=== PATIENT | male | born 1950 | race Caucasian/White ===

== ENCOUNTER → 2017-03-12 | Outpatient (CLI) | payer MEDICARE ==
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
== END | disposition home or self-care (01) ==
LOC: SLEEP 14:30
PROVIDERS: ATTEND Internal Medicine Critical Care Medicine
DX: G47.33 Obstructive sleep apnea (adult) (pediatric) (principal); R53.82 Chronic fatigue, unspecified; G47.10 Hypersomnia, unspecified; E66.9 Obesity, unspecified; I10 Essential (primary) hypertension; E78.5 Hyperlipidemia, unspecified; R97.20 Elevated prostate specific antigen [PSA]; Z68.41 Body mass index [BMI] 40.0-44.9, adult; Z79.899 Other long term (current) drug therapy
CPT/HCPCS: 99204; 99211

== ENCOUNTER → 2017-08-13 | Outpatient (CLI) | payer MEDICARE ==
--- NOTE | 2017-08-13 16:54 | PN ---
PROGRESS NOTE This is a 67-year-old male patient coming in for a followup regarding his obstructive sleep apnea. The patient has moderate to severe disease with an AHI of 26, and the patient also demonstrated severe nocturnal oxygen desaturation. The patient was titrated to a CPAP pressure of 13 cm of water. On today's evaluation, the patient feels great; he is much better; his sleep quality has improved and he is waking up much more alert and refreshed during the day. I checked his current CPAP compliance data, and the patient is averaging more than 9 hours of sleep; an average of 9.1 hours per night. CPAP use for more than 4 hours is 100%. CPAP use has brought the patient's AHI down to 8. Leak factor 30 L/minute and the patient was switched to an AirTouch large- sized full-face mask. He has no specific complaints. He is happy with ongoing treatment. REVIEW OF SYSTEMS: Twelve-point review of systems was done. Positive findings were all mentioned above in the history of present illness. PHYSICAL EXAMINATION: BP is 146/86, pulse 68, respirations 16, temperature 99 0. Weight is 339, saturation 96% on room air. GENERAL APPEARANCE: Calm, comfortable. No acute distress. Head is atraumatic, normocephalic. NECK: Supple. There is no JVD. No goiter or neck masses. LUNGS: Clear to auscultation. Heart sounds are regular rate and rhythm. Normal S1, S2. No S3, S4. No murmurs. ABDOMEN: Soft, nontender. No organomegaly. EXTREMITIES: No edema. No cyanosis or clubbing. NEUROLOGIC: The patient is alert and oriented x3. There is no focal neurological deficit. PSYCHIATRIC: Negative for anxiety or depression. IMPRESSION: 1. Moderately severe obstructive sleep apnea with an AHI of 26, currently on CPAP pressure of 13 with excellent clinical response and compliancy. 2. Hypersomnia, improved. Vinton score is down to 4. 3. Obesity with a body mass index of 44. PLAN: 1. Continue CPAP at the same level of pressure, which is 13 cm of water. 2. Provide the patient an AirTouch large full-face mask. 3. Encourage weight loss. 4. Implement good sleep hygiene measures. 5. Will continue to follow. We will see the patient in followup in a year's time, earlier if needed. MMODL / IJN: [id number] /
== END ==
LOC: SLEEP 14:21
PROVIDERS: ATTEND Internal Medicine Critical Care Medicine
DX: G47.33 Obstructive sleep apnea (adult) (pediatric) (principal); E66.9 Obesity, unspecified; Z68.41 Body mass index [BMI] 40.0-44.9, adult; Z99.89 Dependence on other enabling machines and devices

== ENCOUNTER → 2018-08-11 | Outpatient (CLI) | payer MEDICARE, OTHER ==
--- NOTE | 2018-08-11 14:05 | US ---
EXAMINATION TYPE: US kidneys/renal and bladder DATE OF EXAM: 08/11/2018 COMPARISON: NONE CLINICAL HISTORY: N18.9 chronic kidney disease. Hx bladder infection- was on antibiotics, no pain tod ay EXAM MEASUREMENTS: Right Kidney: 11.4 x 5.7 x 4.8 cm Left Kidney: 11.6 x 5.3 x 5.8 cm Right Kidney: No hydronephrosis or masses seen. Appears lobular in appearance. Left Kidney: Upper pole hypoechoic lesion seen = 1.0 x 1.3 x 1.0 cm Bladder: mildly distended Bilateral Jets not seen There is no evidence for hydronephrosis at this point in time. No nephrolithiasis is seen. The urina ry bladder is incompletely distended but anechoic. Bilateral ureteral jets are not seen. IMPRESSION: 1.0 cm left renal lesion is not definitively a cyst and short-term follow-up could be performed in [address] abdomen could be performed for full characterization.
== END | disposition home or self-care (01) ==
LOC: RADUSWWP 13:30
PROVIDERS: ATTEND Internal Medicine Geriatric Medicine
DX: N18.9 Chronic kidney disease, unspecified (principal)
CPT/HCPCS: 76770

== ENCOUNTER → 2018-10-07 | Outpatient (CLI) | payer MEDICARE ==
--- NOTE | 2018-10-07 12:31 | P.PN ---
Subjective Progress Note Date: 10/07/18 Principal diagnosis: FELICIA This is a pleasant 68-year-old male patient with known history of sleep apnea. The patient is coming in for an annual check. His last evaluation my office was in August 2017. The patient was diagnosed having obstructive sleep apnea moderate in severity with an AHI of 26 and the patient also demonstrated severe nocturnal oxygen desaturation. He was secondary to a CPAP pressure of 13 cm of water. On today's evaluation, the patient is on a strict diet. He is following a [employer] application is [employer] phone and he was able to lose approximately 20 pounds. Used to weigh 339 pounds approximately year ago and currently is down to 319. Despite this, history requiring a CPAP pressure of 13 cm of water. He is still very compliant to CPAP therapy. I checked his CPAP unit and the patient is averaging around 9.3 hours of CPAP use per night. His CPAP use for more than 4 hours on the percent. His leak is 24 L per minute and his AHI is down to 8 while on treatment. Despite some residual obstructive respiratory events, the patient treatment is successful. His current upper scores at 1. No headaches. No tiredness or sleepiness during the day. Does not fall asleep while driving his car or while doing any other day-to-day activities. No chest pain. No heartburns. No sleepwalking. No sleep talking. No parasomnias. No unusual or weird behavior at nighttime during sleep. No cardiac palpitations. No CVA. No congestion heart failure at this point in time. Is very much excited about his weight loss. Review of system 14 point review of system was done and the positive signs are all mentioned above. Of significance is significant amount of weight loss the patient has encountered there. No nausea, no vomiting. No chest pain. No falls. No headaches. Altered mentation. Objective - Vital Signs Vital signs: BP is 167/48. Pulse is 66. Respirations 16, BMI is 42.6, temperature 98.3, weight is 319, height is 60, [place] score is down to 1. The patient appeared well nourished and normally developed. Vital signs as documented. Head exam is unremarkable. No scleral icterus or corneal arcus noted. Neck is without jugular venous distension, thyromegaly, or carotid bruits. Patient has a Mallampati class IV. Carotid upstrokes are brisk bilaterally. Lungs are clear to auscultation and percussion. Cardiac exam reveals the PMI to be normally sized and situated. Rhythm is regular. First and second heart sounds normal. No murmurs, rubs or gallops. Abdominal exam reveals normal bowel sounds, no masses, no organomegaly and no aortic enlargement. Ex tremities are nonedematous and both femoral and pedal pulses are normal.Examination of the skin revealed no evidence of significant rashes, suspicious appearing nevi or other concerning lesions. Neurologically awake and alert and there is no focal neurological deficits. Assessment and Plan Assessment: 1. Obstructive sleep apnea moderate in severity with an AHI of 26 and currently is still on a CPAP pressure of 13 cm of water with excellent clinical response and compliancy 2 severe nocturnal oxygen desaturation improved with CPAP therapy 3 obesity with interval 20 pounds weight loss with a BMI of 42.6 4 hypersomnia improve his current epworth score is down to 1 5 chronic fatigue and sleepiness, improved 6. Loud snoring, recovered Plan Encourage further weight loss. Continue using the CPAP and same level of pressure which is 13 cm of water. I able to cut down the pressure as the patient's AHI while on treatment is at borderline, just above 5. Would like to keep and maintain the same CPAP pressure and lose weight and overall things we'll look improved and the patient will seem to be much more refreshed the next few months. Otherwise history successful for now. Continue using the airfit F20 fullface mask and all of his supplies will be renewed. We'll see back in a year's time in follow-up, earlier if needed.
== END ==
LOC: SLEEP 10:47
PROVIDERS: ATTEND Internal Medicine Critical Care Medicine
DX: G47.33 Obstructive sleep apnea (adult) (pediatric) (principal); E66.9 Obesity, unspecified; R53.82 Chronic fatigue, unspecified; Z99.89 Dependence on other enabling machines and devices; Z68.41 Body mass index [BMI] 40.0-44.9, adult

== ENCOUNTER 2019-03-02 09:23 | Inpatient (IN) | payer OTHER, MEDICARE ==
[2019-03-02] MEDS ORDERED: SODIUM CHLORIDE 0.9% 500 ML 500 ML IV STA (09:31)
[2019-03-02 10:05] LABS: Basophils % (A) 0 %; Eosinophils # (A) 0.2 k/uL (0-0.7); Eosinophils % (A) 4 %; HCT 43.4 % (39.0-53.0); HGB 14.3 gm/dL (13.0-17.5); Lymphocytes # (A) 1.2 k/uL (1.0-4.8); Lymphocytes % (A) 21 %; MCH 27.8 pg (25.0-35.0); MCV 84.1 fL (80.0-100.0); Monocytes # (A) 0.4 k/uL (0-1.0); Monocytes % (A) 6 %; Neutrophils % (A) 67 %; Platelet Count 265 k/uL (150-450); RBC 5.16 m/uL (4.30-5.90); RDW 13.9 % (11.5-15.5); WBC 5.9 k/uL (3.8-10.6)
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
[2019-03-02 10:13] LABS: INR 0.9 (<1.2)
[2019-03-02 10:14] LABS: Partial Thromboplastin Time 23.1 sec (22.0-30.0); Prothrombin Time 9.4 sec (9.0-12.0)
[2019-03-02 10:15] LABS: ALT 20 U/L (4-49); AST 27 U/L (17-59); African American GFR (CKD) 83 (>60 ml/min/1.73 sqM); Albumin 4.4 g/dL (3.5-5.0); Alcohol <10 mg/dL; Alkaline Phosphatase 109 U/L (38-126); Anion Gap 12 mmol/L; Blood Urea Nitrogen 31 mg/dL (9-20); Calcium 10.1 mg/dL (8.4-10.2); Carbon Dioxide 22 mmol/L (22-30); Chloride 105 mmol/L (98-107); Glucose 138 mg/dL (74-99); Non-African American GFR(CKD) 72 (>60 ml/min/1.73 sqM); Potassium 3.7 mmol/L (3.5-5.1); Sodium 139 mmol/L (137-145); Total Bilirubin 0.6 mg/dL (0.2-1.3); Total Protein 7.7 g/dL (6.3-8.2)
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
--- NOTE | 2019-03-02 11:06 | XR ---
EXAMINATION TYPE: XR chest 2V DATE OF EXAM: 03/02/2019 COMPARISON: NONE HISTORY: Shortness of breath TECHNIQUE: Frontal and lateral views of the chest are obtained. FINDINGS: Scattered senescent parenchymal changes noted. Hyperinflation compatible with COPD. No evidence for infiltrate. No evidence for atelectasis. Heart size is stable. Mediastinal structures are stable and grossly unremarkable. No evidence for hilar prominence. Degenerative changes dorsal spine. IMPRESSION: 1. No evidence for acute pulmonary disease.
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
[2019-03-02] MEDS ORDERED: SODIUM CHLORIDE 0.9% 1,000 ML IV ONE (12:16)
[2019-03-02] MEDS ORDERED: INFLUENZA VACCINE (6 MOS+) 60 MCG/0.5 ML SYRINGE IM ONE (13:51)
[2019-03-02] MEDS ORDERED: PNEUMOCOCCAL VACC-PNEUMOVAX 23 25 MCG/0.5 ML VIAL IM ONE (13:51)
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
[2019-03-02] MEDS ORDERED: NAPROXEN 250 MG TAB PO PRN (17:52)
[2019-03-02] MEDS ORDERED: ACETAMINOPHEN TAB 325 MG TAB PO PRN (17:53)
[2019-03-02] MEDS ORDERED: ONDANSETRON 4 MG/2 ML VIAL IVP PRN (17:53)
[2019-03-02 20:52] VITALS: RESP 18
[2019-03-02] MEDS ORDERED: NON FORMULARY DRUG (Zinc [Zinc] 50 MG) PO SCH (21:00)
[2019-03-02] MEDS ORDERED: PANTOPRAZOLE 40 MG TABLET PO SCH (21:00)
[2019-03-02] MEDS ORDERED: MULTIVITAMINS, THERA 1 EACH TAB PO SCH (21:00)
[2019-03-02] MEDS ORDERED: FERROUS SULFATE 325 MG TAB PO SCH (21:00)
[2019-03-02] MEDS ORDERED: LISINOPRIL 20 MG TAB PO SCH (21:00)
[2019-03-02] MEDS ORDERED: CITALOPRAM HYDROBROMIDE 20 MG TAB PO SCH (21:00)
[2019-03-02] MEDS ORDERED: ATENOLOL 25 MG TAB PO SCH (21:00)
[2019-03-02] MEDS ORDERED: TRIAMTERENE-HCTZ 37.5-25MG 1 EACH CAP PO SCH (21:00)
[2019-03-02] MEDS ORDERED: TAMSULOSIN 0.4 MG CAP.ER.24H PO SCH (21:00)
[2019-03-02] MEDS ORDERED: ATORVASTATIN 20 MG TAB PO SCH (21:00)
[2019-03-03 05:13] VITALS: BP 126/91; PULSE 78; TEMP 98.1
[2019-03-03 09:40] LABS: HCT 39.1 % (39.0-53.0); HGB 13.1 gm/dL (13.0-17.5); MCH 28.5 pg (25.0-35.0); MCHC 33.6 g/dL (31.0-37.0); MCV 84.7 fL (80.0-100.0); Platelet Count 245 k/uL (150-450); RBC 4.62 m/uL (4.30-5.90); RDW 13.8 % (11.5-15.5); WBC 5.4 k/uL (3.8-10.6)
[2019-03-03 10:00] LABS: Calcium 9.6 mg/dL (8.4-10.2); Potassium 3.8 mmol/L (3.5-5.1)
[2019-03-03] MEDS ORDERED: KETOROLAC 30 MG/ML 1 ML VIAL IVP SCH (12:00)
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
== END 2019-03-03 15:20 | disposition home or self-care (01) | DRG 313 ==
LOC: EC 09:23 → 5NMEDONC 12:16 → OBSVTOIN 03-03 11:15
PROVIDERS: ADMIT Surgery; ATTEND Surgery
PROC: 3E0234Z Introduction of Serum, Toxoid and Vaccine into Muscle, Percutaneous Approach (ICD-10-PCS; principal; 2019-03-02)
DX: R07.89 Other chest pain (principal); G89.11 Acute pain due to trauma; R10.9 Unspecified abdominal pain; E78.5 Hyperlipidemia, unspecified; F32.9 Major depressive disorder, single episode, unspecified; K21.9 Gastro-esophageal reflux disease without esophagitis; I10 Essential (primary) hypertension; Z23 Encounter for immunization; D64.9 Anemia, unspecified; K42.9 Umbilical hernia without obstruction or gangrene; K40.90 Unilateral inguinal hernia, without obstruction or gangrene, not specified as recurrent; M15.9 Polyosteoarthritis, unspecified; G47.33 Obstructive sleep apnea (adult) (pediatric); R73.03 Prediabetes; N40.0 Benign prostatic hyperplasia without lower urinary tract symptoms; Z79.899 Other long term (current) drug therapy; Z99.89 Dependence on other enabling machines and devices; Z98.890 Other specified postprocedural states; Z87.891 Personal history of nicotine dependence; Z82.49 Family history of ischemic heart disease and other diseases of the circulatory system; V49.49XA Driver injured in collision with other motor vehicles in traffic accident, initial encounter; Y92.410 Unspecified street and highway as the place of occurrence of the external cause
CPT/HCPCS: 36415; 70450; 71046; 71120; 72125; 72170; 74177; 80048; 80053; 80320; 84484; 85025; 85027; 85610; 85730; 90686; 90732; 93005; 96360; 99285

== ENCOUNTER → 2019-11-10 | Outpatient (CLI) | payer MEDICARE ==
--- NOTE | 2019-11-10 16:38 | PN ---
PROGRESS NOTE Progress note for sleep apnea. A 69-year-old male patient being seen in followup in the [facility] regarding his obstructive sleep apnea. The patient has a moderate to severe disease with an AHI of 26. He continues to lose weight. After losing 20 pounds, he lost an additional 70 pounds and currently is down to 246. He remains on a CPAP pressure of 13 cm of water. I noted some increased leak. It has been going on over the past one year and has been gradually getting worse as the patient's leak is currently up to 70 L/minute and the patient is using an AirTouch fullface mask. Based on the compliance data, the patient is still benefitting from the treatment and continues using the CPAP treatment on a regular basis. His CPAP use for more than 4 hours at 100% and the patient is averaging around 11 hours and 6 minutes of CPAP use per night. His AHI is down to 4. No other new complaints. He has BPH and he is on tamsulosin. He is on 5 different antihypertensive medications, blood pressure on tighter control. He has chronic anxiety/depression. No major hypersomnia or sleepiness during the day. His Derwent score is down to 4. REVIEW OF SYSTEMS: A 14-point review of system was done, positive findings are mentioned in history of present illness. BP is 108/54, pulse 70, respiratory rate 16, temperature 98.2, saturation 97% on room air. Derwent score is at 4. BMI is 37.2. Weight is 246, height is 6, 1 and general appearance calm, comfortable, no acute distress. HEAD: Atraumatic, normocephalic. NECK: Supple. No JVD. No goiter or neck masses. LUNGS: Clear to auscultation. HEART: Heart sounds are regular rate and rhythm. Normal S1, S2, no murmurs. ABDOMEN: Soft, nontender, no organomegaly. EXTREMITIES: No edema, cyanosis or clubbing. IMPRESSION: 1. Moderately severe FELICIA, AHI of 26. The patient has lost considerable amount of weight. His current BMI is down to 37.2 and weight is down to 246. 2. Increased leaks around the fullface mask, probably related to ongoing weight loss. 3. Hypertension, well controlled. 4. BPH. 5. Chronic anxiety. PLAN: 1. Switch the patient to an APAP mode. I think APAP will be useful to regulate the patient's pressure as the patient continues to lose considerable amount of weight. Currently he is on CPAP pressure of 3. I will switch him to an APAP mode, minimum pressure of 6, maximum pressure of 13, keeping the AirTouch fullface mask, large size. 2. Encourage further weight loss. 3. Follow up with the blood pressure regarding blood pressure medication adjustments. As the patient has lost weight, his blood pressure is under tighter control and his blood pressure medication can be simplified. 4. See me back in a year's time in followup. MMODL / IJN: [id number] /
== END | disposition home or self-care (01) ==
LOC: SLEEP 14:37
PROVIDERS: ATTEND Internal Medicine Critical Care Medicine
DX: G47.33 Obstructive sleep apnea (adult) (pediatric) (principal); I10 Essential (primary) hypertension; N40.0 Benign prostatic hyperplasia without lower urinary tract symptoms; F41.9 Anxiety disorder, unspecified; Z99.89 Dependence on other enabling machines and devices

== ENCOUNTER → 2020-07-04 | Outpatient (CLI) | payer MEDICARE ==
--- NOTE | 2020-07-05 04:25 | MR ---
EXAMINATION TYPE: MR lumbar spine wo/w con DATE OF EXAM: 07/04/2020 COMPARISON: None HISTORY: LBP, LLE radiculopathy x 6 weeks. CONTRAST: Standard multiplanar, multisequence MRI departmental protocol utilizing 12 mL intravenous Gadavist ga dolinium contrast. The lumbar vertebra have normal alignment. There is degenerative disc space narrowing throughout the lumbar spine. There is moderate posterior disc herniation at L2-3 with encroachment on the spinal can al. There is some enhancement of the lumbar nerve roots at L2-3. There is moderate spinal stenosis. D isc herniation is seen bilaterally at L2-3. There is no lumbar paraspinal mass. There is no compression fracture. There is small posterior disc b ulging at L3-4 and L4-5 and L5-S1 without significant spinal stenosis. There is lateral recess stenos is due to facet arthropathy at L4-5. There is some epidural enhancement along the posterior aspect of the L3 vertebral body consistent with sequestered disc fragment this is seen on the left side of L3 vertebral body. Abnormality measures 15 x 10 mm. IMPRESSION: Large posterior disc herniation with sequestered fragment at L2-3 which is elevating the posterior lo ngitudinal ligament. This is seen on the left side. Disc herniation also on the right side at L2-3. M oderate spinal stenosis at L2-3. Nerve root enhancement consistent with neuritis. Moderate L2-3 neura l foraminal stenosis due to the disc herniation. Small posterior disc herniations in the lower lumbar spine without significant stenosis. There is mil d multilevel lateral recess stenosis.
== END | disposition home or self-care (01) ==
LOC: RADMRIMAIN 16:39
PROVIDERS: ATTEND Internal Medicine Geriatric Medicine
DX: M48.061 Spinal stenosis, lumbar region without neurogenic claudication (principal); M51.16 Intervertebral disc disorders with radiculopathy, lumbar region; M99.73 Connective tissue and disc stenosis of intervertebral foramina of lumbar region
CPT/HCPCS: 72158; A9585

== ENCOUNTER → 2020-07-26 | Outpatient (CLI) | payer MEDICARE ==
[2020-07-26 12:35] LABS: Basophils % (A) 0 %; Eosinophils # (A) 0.1 k/uL (0-0.7); Eosinophils % (A) 1 %; HCT 40.6 % (39.0-53.0); HGB 13.5 gm/dL (13.0-17.5); Lymphocytes # (A) 0.9 k/uL (1.0-4.8); Lymphocytes % (A) 14 %; MCH 29.2 pg (25.0-35.0); MCHC 33.4 g/dL (31.0-37.0); MCV 87.4 fL (80.0-100.0); Mean Platelet Volume 7.2; Monocytes # (A) 0.3 k/uL (0-1.0); Monocytes % (A) 5 %; Neutrophils # (A) 5.2 k/uL (1.3-7.7); Neutrophils % (A) 79 %; Platelet Count 177 k/uL (150-450); RBC 4.64 m/uL (4.30-5.90); RDW 14.3 % (11.5-15.5); WBC 6.5 k/uL (3.8-10.6)
[2020-07-26 12:43] LABS: African American GFR (CKD) >90 (>60 ml/min/1.73 sqM); Anion Gap 5 mmol/L; Blood Urea Nitrogen 31 mg/dL (9-20); Calcium 9.5 mg/dL (8.4-10.2); Carbon Dioxide 29 mmol/L (22-30); Chloride 102 mmol/L (98-107); Glucose 88 mg/dL (74-99); Non-African American GFR(CKD) >90 (>60 ml/min/1.73 sqM); Potassium 3.8 mmol/L (3.5-5.1); Sodium 136 mmol/L (137-145)
--- NOTE | 2020-07-26 12:47 | XR ---
EXAMINATION TYPE: XR chest 2V DATE OF EXAM: 07/26/2020 COMPARISON: 03/02/2019 HISTORY: chest pain TECHNIQUE: Frontal and lateral views of the chest are obtained. FINDINGS: There is no focal air space opacity, pleural effusion, or pneumothorax seen. The cardiac silhouette size is within normal limits. The osseous structures are intact. IMPRESSION: No acute cardiopulmonary process.
[2020-07-26 13:10] LABS: INR 0.9 (<1.2); Partial Thromboplastin Time 22.2 sec (22.0-30.0); Prothrombin Time 9.8 sec (9.0-12.0)
[2020-07-26 14:58] LABS: Appearance,Urine Clear (Clear); Bilirubin,Urine Negative (Negative); Blood,Urine Negative (Negative); Color,Urine Yellow; Glucose,Urine (UA) Negative (Negative); Ketones,Urine Negative (Negative); Leukocyte Esterase,Urine Negative (Negative); Mucus,Urine Rare /hpf; Nitrite,Urine Negative (Negative); PH, Urine 7.5 (5.0-8.0); Protein,Urine 1+ (Negative); RBC,Urine <1 /hpf (0-5); Specific Gravity,Urine 1.023 (1.001-1.035); Squamous Epithelial Cell,Urine 1 /hpf (0-4); Urobilinogen,Urine <2.0 mg/dL (<2.0); WBC,Urine <1 /hpf (0-5)
== END | disposition home or self-care (01) ==
LOC: LABPAT 11:49
PROVIDERS: ATTEND Orthopaedic Surgery Orthopaedic Surgery of the Spine
DX: Z01.818 Encounter for other preprocedural examination (principal); R07.9 Chest pain, unspecified
CPT/HCPCS: 36415; 71046; 80048; 81001; 85025; 85610; 85730; 87070

== ENCOUNTER 2020-08-03 06:14 | Day surgery (SDC) | payer MEDICARE ==
[2020-07-28 11:26] VITALS: BMI 34.7
[~2020-08-03 06:14] MED LIST: LACTATED RINGERS 1,000 ML IV SCH; LIDOCAINE 1% (10MG/ML) FOR IV START INTRADERMA PRN; ONDANSETRON 4 MG/2 ML VIAL IVP ONE
[2020-08-03] MEDS ORDERED: HYDROmorphone 0.5 MG/0.5 ML SYRINGE IVP PRN ×2 (07:00→09:23)
[2020-08-03] MEDS ORDERED: SUCCINYLCHOLINE CHLORIDE VIAL 200 MG/10 ML VIAL IV ONE (07:24)
[2020-08-03] MEDS ORDERED: ePHEDrine SULFATE/0.9% NACL/PF 50 MG/5 ML SYRINGE IV ONE (07:24)
[2020-08-03] MEDS ORDERED: PROPOFOL 10 MG/ML 20 ML VIAL IV ONE (07:24)
[2020-08-03] MEDS ORDERED: PHENYLEPHRINE-0.9% NACL SYG 1,000 MCG/10 ML SYRINGE ONE (07:24)
[2020-08-03] MEDS ORDERED: LIDOCAINE 1% INJ 10MG/ML (20 ML MDV) ONE (07:24)
[2020-08-03] MEDS ORDERED: MIDAZOLAM 2 MG/2 ML VIAL ONE (07:24)
[2020-08-03] MEDS ORDERED: fentaNYL (PF) 50 MCG/ML 2 ML AMP ONE (07:24)
[2020-08-03] MEDS ORDERED: ROCURONIUM 10 MG/ML (5 ML VIAL) IV ONE (07:24)
[2020-08-03] MEDS ORDERED: NEOSTIGMINE 1 MG/ML 10 ML VIAL ONE (07:24)
[2020-08-03] MEDS ORDERED: GLYCOPYRROLATE 0.2 MG/ML 2 ML VIAL ONE (07:24)
[2020-08-03] MEDS ORDERED: HYDROmorphone (PF) 1 MG/ML ONE (07:24)
[2020-08-03] MEDS: ceFAZolin 1,000 MG in SODIUM CHLORIDE 0.9% IRRIGATIO 1,000 ML IRRIGATION PRN ×2 (07:30→07:35)
[2020-08-03] MEDS ORDERED: GELATIN SPONGE,ABSORB (LARGE) 1 EACH SPONGE TOPICAL ONE (08:24)
[2020-08-03] MEDS ORDERED: LIDOCAINE 0.5%-EPI 1:200,000 50 ML VIAL SQ ONE (08:25)
[2020-08-03] MEDS ORDERED: methylPREDNISolone ACETATE 80 MG/ML 1 ML VIAL MISCELLANE ONE (08:25)
[2020-08-03] MEDS ORDERED: THROMBIN (BOVINE) 5,000 UNIT VIAL TOPICAL ONE (08:26)
[2020-08-03] MEDS ORDERED: LACTATED RINGERS 1,000 ML IV ONE (09:15)
[2020-08-03] MEDS ORDERED: MAGNESIUM HYDROXIDE 2,400 MG/10 ML CUP PO PRN (09:23)
[2020-08-03] MEDS ORDERED: traMADol 50 MG TAB PO PRN (09:23)
[2020-08-03] MEDS ORDERED: HYDROcodone/APAP 5-325MG 1 EACH TAB PO PRN (09:23)
[2020-08-03] MEDS ORDERED: KETOROLAC 15 MG/ML 1 ML VIAL IVP PRN (09:23)
[2020-08-03] MEDS ORDERED: HYDROmorphone 1 MG/ML 1 ML SYRINGE IVP PRN (09:23)
[2020-08-03] MEDS ORDERED: BENZOCAINE/MENTHOL LOZENG 1 EACH LOZENGE MUCOUS MEM PRN (09:23)
[2020-08-03] MEDS ORDERED: CYCLOBENZAPRINE 10 MG TAB PO PRN (09:23)
[2020-08-03] MEDS ORDERED: ONDANSETRON 4 MG/2 ML VIAL IVP PRN (09:23)
[2020-08-03] MEDS ORDERED: IBUPROFEN 600 MG TAB PO PRN (09:23)
[2020-08-03] MEDS ORDERED: NAPROXEN 250 MG TAB PO PRN (09:26)
[2020-08-03] MEDS ORDERED: HYDROcodone/APAP 7.5-325MG 1 EACH TAB PO PRN ×2 (09:26→09:27)
--- NOTE | 2020-08-03 09:32 | P.OP ---
Date of Procedure: 08/03/20 Preoperative Diagnosis: Herniated nucleus pulposis L2-3, lower extremity radiculopathy, lower extremity weakness, intractable lower extremity pain and degenerative disc disease, Postoperative Diagnosis: Same Anesthesia: GETA Pathology: none sent Condition: stable Disposition: PACU Description of Procedure: BRIEF OPERATIVE NOTE Preoperative Diagnosis:Herniated nucleus pulposis L2-3, lower extremity radiculopathy, lower extremity weakness, intractable lower extremity pain and degenerative disc disease, Postoperative Diagnosis:Herniated nucleus pulposis L2-3, lower extremity radiculopathy, lower extremity weakness, intractable lower extremity pain and degenerative disc disease, Procedure: Laminectomy and decompression L2-3 Discectomy for decompression L2-3 Use of fluoroscopic guidance Surgeon: Dr. Blancas Seat Scooper Machine: Tamie CUELLAR who is present throughout the entire the case persistence during positioning, dissection, exposure, visualization, and all crucial elements of the case as well as closure. Anesthesia: General anesthesia per Dr. Dr. Keith Estimated blood loss: Approximately 100 mL Complications: None apparent Components implanted: None Disposition: To recovery room in good stable condition. OPERATIVE INDICATIONS The patient has been having issues in their lower back and lower extremities. His been having severe pain and difficulty with any activities and even with difficulty with trying to lay down. His been having severe pain in his back and primarily at his lower extremities on the left. He was found have a large disc herniation with extruded fragment at L2-3 which correlated well with his lower extremity symptoms. He had a number of degenerative changes throughout his lumbar spine but this seems to be a new issue with a disc extrusion and herniation at L2-3 which correlated well with his lower extremity symptoms. The patient has been through conservative treatment. We discussed various treatment options including surgery, and the patient wishes to proceed with surgery We discussed the risk, patient's alternatives and benefits of surgery including but not limited to, risk of bleeding risk of infection, risk of need for further surgery, risk of decreased, loss of motion, loss of function, nerve damage, paralysis, heart attack, blindness and . OPERATIVE SUMMARY After discussing all the risks, patient alternatives and benefits at length, the patient elected to proceed with surgical intervention, signed informed consent, and presented for their procedure. The patient was seen and examined in the preoperative holding area and the surgical site was marked. The patient was given antibiotics and brought to the operating room. The patient was sedated and intubated by anesthesia in standard fashion. The patient was positioned on to the operating room table in a prone position on the appropriate frame which was well-padded and well molded. We were careful to pad any bony prominences and pressure points. We were careful to maintain the patient's cervical spine and good neutral alignment and position throughout. The patient was prepped and draped in a normal standard fashion. An appropriate timeout and keystone protocol performed. We were able to proceed with the surgery. Fluoroscopy was utilized to establish the appropriate level. The local wound area was infiltrated with local anesthetic. An incision was made at the midline longitudinally over the appropriate levels at L2-3. Dissection was taken down subcutaneously to the level of the fascia which was split midline. Dissection was taken over the lamina. Intraoperative fluoroscopy was taken which showed a marker at the appropriate level of L2-3. With the appropriate level positively confirmed, we were able to proceed with laminectomy. The wound was copiously irrigated and suctioned dry as had been done periodically throughout the case. I performed a laminectomy with a combi nation of curettes and a high-speed bur and Kerrison rongeurs. A small medial facetectomy was performed again further access. A partial foraminotomy was also performed. Portions of the ligamentum flavum were taken down to expose the dura and traversing nerve root. The area was significantly tight and I had to expose the medial facet and do partial medial facetectomy on to gain good access to the space. I was able to mobilize the traversing nerve root and gain access to the disc space. Note was made of obvious compression from the disc. There is significant tension on the traversing nerve roots. Protecting the soft tissue structures, a small annulotomy was established. I was able to perform discectomy and remove any extruded disc fragments and any loose fragments from within the disc itself. There is some severe disc desiccation noted. I tried to preserve the disc annulus that appeared stable. Throughout number of extruded fragments that had to be removed and this gave further decompression at the area. There were no further extruded fragments noted. There is no evidence of dural tear or leak. Good hemostasis maintained. The wound was copiously irrigated and suctioned dry. Good decompression and discectomy was noted. We were able to proceed with closure. The fascia was closed for a watertight closure. The subcuticular tissue was closed with absorbable suture. The wound was cleaned and dried and dressed with the appropriate dressing. The drapes were broken down. The patient was gently rolled back onto their hospital bed being careful to maintain their cervical spine and good neutral alignment and position. They were woken up by anesthesia, extubated, and brought to the recovery room in good stable condition. The patient will be admitted to the hospital for observation and for appropriate postoperative care, medical management and monitoring. We will continue to follow them closely about the postoperative course.
--- NOTE | 2020-08-03 09:33 | FL ---
Fluoroscopy INDICATION: Pain FINDINGS: Fluoroscopy time: 8 seconds. Images obtained: 0. IMPRESSIONS: 1. Documentation of fluoroscopy.
[2020-08-03 09:41] VITALS: TEMP 96.8
--- NOTE | 2020-08-03 10:07 | XR ---
Limited lumbar spine HISTORY: Lumbar laminectomy Single intraoperative C-arm image documents the procedure
[2020-08-03 11:27] VITALS: RESP 17
[2020-08-03 12:18] VITALS: BP 131/78; PULSE 60
[2020-08-03] MEDS ORDERED: NON FORMULARY DRUG (Omeprazole Magnesium [Prilosec Otc] 20 MG Tablet.Dr) PO SCH (21:00)
[2020-08-03] MEDS ORDERED: BACLOFEN 10 MG TAB PO SCH (21:00)
[2020-08-03] MEDS ORDERED: NON FORMULARY DRUG (Citalopram Hydrobromide [Celexa] 40 MG Tablet) PO SCH (21:00)
[2020-08-03] MEDS ORDERED: NON FORMULARY DRUG (Enalapril 20 MG Tab) PO SCH (21:00)
[2020-08-03] MEDS ORDERED: atenoloL 25 MG TAB PO SCH (21:00)
[2020-08-03] MEDS ORDERED: TRIAMTERENE-HCTZ 37.5-25MG 1 EACH CAP PO SCH (21:00)
[2020-08-03] MEDS ORDERED: NON FORMULARY DRUG (Simvastatin [Simvastatin] 40 MG Tablet) PO SCH (21:00)
[2020-08-03] MEDS ORDERED: MULTIVITAMINS, THERA 1 EACH TAB PO SCH (21:00)
[2020-08-03] MEDS ORDERED: NON FORMULARY DRUG (Zinc [Zinc] 50 MG Tablet) PO SCH (21:00)
[2020-08-03] MEDS ORDERED: NON FORMULARY DRUG (Aspirin [Adult Low Dose Aspirin Ec] 81 MG Tablet.Dr) PO SCH (21:00)
[2020-08-03] MEDS ORDERED: TAMSULOSIN 0.4 MG CAP.ER.24H PO SCH (21:00)
== END 2020-08-03 12:40 | disposition home or self-care (01) ==
LOC: OR 06:14
PROVIDERS: ATTEND Orthopaedic Surgery Orthopaedic Surgery of the Spine
DX: M51.16 Intervertebral disc disorders with radiculopathy, lumbar region (principal); M51.36 Other intervertebral disc degeneration, lumbar region; M48.062 Spinal stenosis, lumbar region with neurogenic claudication; M47.26 Other spondylosis with radiculopathy, lumbar region; I12.9 Hypertensive chronic kidney disease with stage 1 through stage 4 chronic kidney disease, or unspecified chronic kidney disease; N18.9 Chronic kidney disease, unspecified; E78.5 Hyperlipidemia, unspecified; K21.9 Gastro-esophageal reflux disease without esophagitis; N40.0 Benign prostatic hyperplasia without lower urinary tract symptoms; F41.9 Anxiety disorder, unspecified; R73.9 Hyperglycemia, unspecified; R26.81 Unsteadiness on feet; I73.00 Raynaud's syndrome without gangrene; Z97.3 Presence of spectacles and contact lenses; Z82.49 Family history of ischemic heart disease and other diseases of the circulatory system; Z87.891 Personal history of nicotine dependence; E66.9 Obesity, unspecified; Z68.34 Body mass index [BMI] 34.0-34.9, adult; F32.9 Major depressive disorder, single episode, unspecified; G47.30 Sleep apnea, unspecified; Z98.890 Other specified postprocedural states; Z79.891 Long term (current) use of opiate analgesic; Z79.899 Other long term (current) drug therapy
CPT/HCPCS: 72100; 63047; 63048; J2250; J0330; J1040; J2710; J0690 ×2; J2405; J2001; J3010; J1170; J2370; J2704; 86850; 86900; 86901

== ENCOUNTER → 2022-03-13 | Outpatient (CLI) | payer MEDICARE, OTHER ==
--- NOTE | 2022-03-13 16:12 | P.PCN ---
Date of Procedure: 03/13/22 Operative Findings: This is a 71-year-old male patient was seen in follow-up regarding his obstructive sleep apnea. His last evaluation with me was on 11/10/2019. He is a morbidly obese male patient continues to have fluctuations body weight. He has obstructive sleep apnea and his diagnosis established few years back and the patient had a baseline AHI of 26. The patient accordingly was treated with an APAP machine pressures of 5/13 cm of water and is using the air touch full facemask. His treatment has been extremely successful. Since his last evaluation, he has gained weight and currently he is up by around 50 pounds and his weight is back to 300. He is doing well however. His blood pressure seems to be under better control according to him. However, on today's evaluation, his BP was noted to be elevated. I checked his machine and a bili compliancy over the past 30 days. Based on the compliance data, the patient utilizes machine overnight without any interruption in the patient's usage of the machine for more than 4 hours is 100%. His overall compliancy is at 100%. His been ave raging around 10.6 hours of CPAP use per night at a pressure of 12 cm of water on average and his AHI is down to 3.7 while on treatment. His leak is in order of 30 L/m. He wakes up probably twice in the middle of the night to urinate. His taken tamsulosin. No angina. No palpitations. No heartburn. No snoring while on CPAP. No other major medical issue is since his last evaluation. Of significance is a back surgery that he underwent as the patient developed sudden weakness in lower extremities and the patient underwent a spine surgery with subsequent improvement in functionality in his lower extremities. He is currently ambulatory. BP is 177/86 with a pulse of 56 and the respiration of 16 and a weight of 300. Grundy score is 0. Temperature is 97.9 and saturation is 96% on room air oxygen. The patient appeared well nourished and normally developed. Vital signs as documented. Head exam is unremarkable. No scleral icterus or corneal arcus noted. Neck is without jugular venous distension, thyromegaly, or carotid bruits. Carotid upstrokes are brisk bilaterally. The patient has significant crowding of posterior pharynx with a Mallampati class IV. Lungs are clear to auscultation and percussion. Cardiac exam reveals the PMI to be normally sized and situated. Rhythm is regular. First and second heart sounds normal. No murmurs, rubs or gallops. Abdominal exam reveals normal bowel sounds, no masses, no organomegaly and no aortic enlargement. Extremities are nonedematous and both femoral and pedal pulses are normal.Examination of the skin revealed no evidence of significant rashes, suspicious appearing nevi or other concerning lesions.Neurologically, the patient is awake and alert and the patient does not have any focal neurological deficit. Cranial nerves are essentially intact. Assessment FELICIA with a moderate severity with an AHI of 26 currently on CPAP. The patient is utilizing an APAP mode pressures of 5/13 cm of water and he has a full facemask, air touch. Chronic hypersomnia improved with CPAP therapy, current Grundy score is at 0 Hypertension Obesity with a weight of 200 pounds Hypertension Hyperlipidemia Lumbar spine/disc disease Plan Encourage weight loss Continue CPAP therapy the same level of pressures, no adjustments needed Refill supplies including the air touch full facemask, tubes and filters Follow-up with a primary care physician regarding blood pressure control No other active issues for now. Medications reviewed. CPAP machine is functional We'll follow with him back in 1-2 years time.
== END ==
LOC: SLEEP 15:36
PROVIDERS: ATTEND Internal Medicine Critical Care Medicine
DX: G47.33 Obstructive sleep apnea (adult) (pediatric) (principal); E66.9 Obesity, unspecified; Z91.040 Latex allergy status; Z87.891 Personal history of nicotine dependence; Z99.89 Dependence on other enabling machines and devices; I10 Essential (primary) hypertension; E78.5 Hyperlipidemia, unspecified; M51.36 Other intervertebral disc degeneration, lumbar region
CPT/HCPCS: 99212

== ENCOUNTER 2022-11-19 18:58 | Inpatient (IN) | payer MEDICARE, OTHER ==
[2022-11-19 19:02] LABS: Glucose,Whole Blood 175 mg/dL (70-110)
[2022-11-19] MEDS ORDERED: SODIUM CHLORIDE 0.9% 1,000 ML IV STA (19:02)
[2022-11-19 19:10] LABS: Glucose,Whole Blood 195 mg/dL (70-110)
[2022-11-19] MEDS ORDERED: levETIRAcetam IV 2,000 MG in SODIUM CHLORIDE 0.9% 250 ML IVPB ONE (19:15)
[2022-11-19 19:25] LABS: Basophils % (A) 0 %; Eosinophils # (A) 0.4 k/uL (0-0.7); Eosinophils % (A) 5 %; HCT 47.1 % (39.0-53.0); HGB 15.3 gm/dL (13.0-17.5); Lymphocytes # (A) 2.2 k/uL (1.0-4.8); Lymphocytes % (A) 26 %; MCH 29.1 pg (25.0-35.0); MCHC 32.5 g/dL (31.0-37.0); MCV 89.3 fL (80.0-100.0); Monocytes # (A) 0.5 k/uL (0-1.0); Monocytes % (A) 6 %; Neutrophils # (A) 5.1 k/uL (1.3-7.7); Neutrophils % (A) 61 %; Platelet Count 189 k/uL (150-450); RBC 5.28 m/uL (4.30-5.90); WBC 8.5 k/uL (3.8-10.6)
[2022-11-19] MEDS ORDERED: SUCCINYLCHOLINE CHLORIDE 200 MG/10 ML VIAL IV STA (19:28)
[2022-11-19] MEDS ORDERED: ETOMIDATE 2 MG/ML 10 ML VIAL IVP STA (19:29)
[2022-11-19] MEDS ORDERED: LORazepam 2 MG/ML INJ IV STA (19:35)
[2022-11-19] MEDS ORDERED: ALTEPLASE BOLUS FOR STROKE 9 MG in EMPTY SYRINGE 1 SYR IV STA (19:37)
[2022-11-19] MEDS ORDERED: Alteplase PER PHARMACY Stroke 1 EACH MISC MISCELLANE PRN (19:37)
[2022-11-19] MEDS ORDERED: ALTEPLASE 81 MG in EMPTY BAG 1 BAG IV STA (19:37)
--- NOTE | 2022-11-19 19:37 | CT ---
EXAMINATION TYPE: CT brain wo con for TPA CT DLP: 1370 mGycm, Automated exposure control for dose reduction was used. DATE OF EXAM: 11/19/2022 7:19 PM COMPARISON: None. CLINICAL INDICATION:Male, 72 years old with history of Neuro deficit, acute, stroke suspected, TECHNIQUE: Brain: Axial CT images of the brain were obtained with coronal and sagittal reformats created and rev iewed. Contrast used: None. Oral contrast used: None. FINDINGS: Brain: Extra-axial spaces: No abnormal extra-axial fluid collections. Ventricular system: Dilatation in proportion to cerebral atrophy. Cerebral parenchyma: Cerebral atrophy. No acute intraparenchymal hemorrhage or mass effect. The barrera -white junction is well differentiated. Scattered hypoattenuating areas are seen within the white mat ter. Cerebellum: Unremarkable. Mass effect: No evidence of midline shift. Intracranial vasculature: unremarkable Soft tissues: Normal. Calvarium/osseous structures: No depressed skull fracture. Paranasal sinuses and mastoid air cells: Mild scattered paranasal sinus disease. Visualized orbits: Orbital contents are intact. IMPRESSION: 1. No acute intracranial process. 2. Nonspecific white matter changes, likely secondary to chronic small vessel ischemic disease.
[2022-11-19 19:38] LABS: ALT 34 U/L (4-49); AST 36 U/L (17-59); African American GFR (CKD) 69 (>60 ml/min/1.73 sqM); Albumin 4.3 g/dL (3.5-5.0); Alkaline Phosphatase 84 U/L (38-126); Anion Gap 12 mmol/L; Blood Urea Nitrogen 41 mg/dL (9-20); Calcium 9.6 mg/dL (8.4-10.2); Carbon Dioxide 23 mmol/L (22-30); Chloride 105 mmol/L (98-107); Creatine Kinase 45 U/L (55-170); Glucose 202 mg/dL (74-99); Non-African American GFR(CKD) 60 (>60 ml/min/1.73 sqM); Potassium 4.2 mmol/L (3.5-5.1); Sodium 140 mmol/L (137-145); Total Bilirubin 0.5 mg/dL (0.2-1.3); Total Protein 7.4 g/dL (6.3-8.2)
--- NOTE | 2022-11-19 19:40 | ED ---
General Adult HPI - General Chief complaint: Altered Mental Status Stated complaint: Stroke Time Seen by Provider: 11/19/22 19:02 Source: patient, family, EMS, RN notes reviewed, old records reviewed Mode of arrival: EMS Limitations: altered mental status - History of Present Illness Initial comments: 72-year-old male history of hypertension presenting with suspected stroke. Patient acutely became altered and unresponsive. Family was unable to arouse the patient. He had abnormal respiratory pattern and had facial droop according to family. Paramedics arrived and patient was transported to the emergency department. He had vomited multiple times at the onset. - Related Data Home Medications Medication Instructions Recorded Confirmed Citalopram Hydrobromide [CeleXA] 40 mg PO DAILY 11/19/22 11/19/22 Enalapril [Vasotec] 20 mg PO DAILY 11/19/22 11/19/22 Rosuvastatin [Crestor] 10 mg PO DAILY 11/19/22 11/19/22 Tamsulosin [Flomax] 0.4 mg PO DAILY 11/19/22 11/19/22 Triamterene/Hydrochlorothiazid 1 cap PO DAILY 11/19/22 11/19/22 [Triamterene-Hctz 37.5-25 mg Cp] atenoloL [Tenormin] 50 mg PO DAILY 11/19/22 11/19/22 Allergies Allergy/AdvReac Type Severity Reaction Status Date / Time Unable to Assess Allergy Verified 11/19/22 19:06 Review of Systems ROS Statement: Those systems with pertinent positive or pertinent negative responses have been documented in the HPI. ROS Other: All systems not noted in ROS Statement are negative. General Exam Limitations: altered mental status General appearance: obtunded, in distress Head exam: Present: atraumatic, normocephalic Eye exam: Present: PERRL (Forced rightward gaze) Respiratory exam: Present: respiratory distress, other (Snoring respirations) Cardiovascular Exam: Present: tachycardia, irregular rhythm GI/Abdominal exam: Present: soft. Absent: distended, tenderness Extremities exam: Present: normal capillary refill Neurological exam: Present: other (Patient is completely pounded, nonresponsive, snoring respirations, covered in vomit, he has forced gaze deviation of the right. He is not moving any extremity and has spontaneous tremor-like activity of the hands and feet.) Skin exam: Present: warm, dry, intact Course Vital Signs 11/19/22 11/19/22 11/19/22 19:01 19:39 19:53 Temperature 97 F L Pulse Rate 140 H 128 H Respiratory 36 H 25 H Rate Blood Pressure 102/48 158/125 O2 Sat by Pulse 98 99 Oximetry Fraction of 100 Inspired Oxygen (FIO2) 11/19/22 11/19/22 11/19/22 19:59 20:17 20:20 Temperature Pulse Rate 123 H 105 H Respiratory Rate Blood Pressure 172/128 132/105 O2 Sat by Pulse 95 93 L Oximetry Fraction of 100 60 Inspired Oxygen (FIO2) Procedures - Intubation Sedative: Etomidate Mg Given: 10 Paralytic: Succinylcholine Mg Given: 100 Laryngoscope: Archana Size: 4 Assist Device Used: Bougie ET Tube Size: 8 ET Tube Uncuffed: No Tube Secured Depth (cm): 23 Tube Secured Location: lips Tube Placement Confirmation: visualized tube passing through cords, equal breath sounds bilaterally, no breath sounds over epigastrium, confirmation by capnometry Intubation Complications: difficult intubation Medical Decision Making - Medical Decision Making Was pt. sent in by a medical professional or institution (Dr. PA, PHARMACY SALESPERSON, urgent care, hospital, or senior care...) When possible be specific @ -No Did you speak to anyone other than the patient for history (EMS, parent, family, police, friend...)? What history was obtained from this source @ -[Patient's son Did you review nursing and triage notes (agree or disagree)? Why? @ -I reviewed and agree with nursing and triage notes Were old charts reviewed (outside hosp., previous admission, EMS record, old EKG, old radiological studies, urgent care reports/EKG's, senior care records)? Report findings @ -No old charts were reviewed Differential Diagnosis (chest pain, altered mental status, abdominal pain women, abdominal pain men, vaginal bleeding, weakness, fever, dyspnea, syncope, headache, dizziness, GI bleed, back pain, seizure, CVA, palpatations, mental health, musculoskeletal)? @ -[Differential CVA Ischemic stroke, hemorrhagic stroke, brain tumor, atypical migraine, Wernicke's encephalopathy, seizure, multiple sclerosis, meningitis, encephalitis, hypoglycemia, Guillain-More, electrolytes disturbance, myasthenia gravis.... This is not meant to be an all-inclusive list EKG interpreted by me (3pts min.). @ -EKG: Atrial fibrillation with RVR, rate of 131, QRS duration 80, QTC 396, no ST segment elevation. X-rays interpreted by me (1pt min.). @ -None done CT interpreted by me (1pt min.). @ -None done U/S interpreted by me (1pt. min.). @ -None done What testing was considered but not performed or refused? (CT, X-rays, U/S, labs)? Why? @ -None What meds were considered but not given or refused? Why? @ -None Did you discuss the management of the patient with other professionals (professionals i.e. Dr., PA, PHARMACY SALESPERSON, lab, RT, psych nurse, social science manager, administration physician, teacher, surveillance dual rate officer, director case management)? Give summary @ -[Stroke management is discussed with Dr. Urias, multiple times throughout the patient's presentation. He does not visualize any acute occlusion on CT angiography that he can intervene on it does recommend TPA. I discussed case with Dr. Paula who will admit, Dr. Vinod guajardo for neurology, and Dr. Donald guajardo for the ICU. Was smoking cessation discussed for >3mins.? @ -No Was critical care preformed (if so, how long)? @Yes, 35 minutes Were there social determinants of health that impacted care today? How? (Homelessness, low income, unemployed, alcoholism, drug addiction, transportation, low edu. Level, literacy, decrease access to med. care, shelter, rehab)? @ -No Was there de-escalation of care discussed even if they declined (Discuss DNR or withdrawal of care, Hospice)? DNR status @ -No What co-morbidities impacted this encounter? (DM, HTN, Smoking, COPD, CAD, Cancer, CVA, ARF, Chemo, Hep., AIDS, mental health diagnosis, sleep apnea, morbid obesity)? @ -[Hypertension. Was patient admitted / discharged? Hospital course, mention meds given and route, prescriptions, significant lab abnormalities, going to OR and other pertinent info. @ -[72-year-old male presenting in extremis, profuse vomiting, diaphoresis, fixed gaze to the right. Complete Neurologic Assessment Is Not Possible in This Patient. He Has Some Tremor of Bilateral Hands. He Is in A. fib with No Prior History. There Is High Suspicion for Acute CVA and Code Alteplase Is Activated the Emergency Department. He Is Taken Immediately to CT. He Receives CT and CT Angiography and Is Subsequently intubated for airway protection and respira tory support. The patient had no contraindications to TPA and was recommended both by myself and by the stroke neurologist to administer TPA and the family is agreeable. The risks and benefits were discussed. There was significant delay TPA administration due to difficult airway and the need for intubation as well as accelerated hypertension in the setting of acute CVA. The patient required Cardene for blood pressure support. He was ultimately transition from Cardene to Cardizem for his atrial fibrillation with rapid ventricular response. Additionally he is covered for seizure prophylaxis. He is on propofol drip for sedation. His prognosis is guarded and this is discussed with patient's family given the severity of his presentation. He is admitted to the ICU for supportive care Undiagnosed new problem with uncertain prognosis? @ -No Drug Therapy requiring intensive monitoring for toxicity (Heparin, Nitro, Insulin, Cardizem)? @ -No Were any procedures done? @ -No Diagnosis/symptom? @ -[Acute CVA, respiratory failure requiring intubation Acute, or Chronic, or Acute on Chronic? @ -Acute Uncomplicated (without systemic symptoms) or Complicated (systemic symptoms)? @ -[Complicated Side effects of treatment? @ -No Exacerbation, Progression, or Severe Exacerbation? @ -No Poses a threat to life or bodily function? How? (Chest pain, USA, NC, pneumonia, PE, COPD, DKA, ARF, appy, cholecystitis, CVA, Diverticulitis, Homicidal, Suicidal, threat to staff... and all critical care pts) @ Yes, high risk of mortality - Lab Data Result diagrams: 11/19/22 19:05 11/19/22 19:05 Lab Results 11/19/22 11/19/22 11/19/22 Range/Units 19:01 19:05 19:05 WBC 8.5 (3.8-10.6) k/uL RBC 5.28 (4.30-5.90) m/uL Hgb 15.3 (13.0-17.5) gm/dL Hct 47.1 (39.0-53.0) % MCV 89.3 (80.0-100.0) fL MCH 29.1 (25.0-35.0) pg MCHC 32.5 (31.0-37.0) g/dL RDW 14.0 (11.5-15.5) % Plt Count 189 (150-450) k/uL MPV 8.0 Neutrophils % 61 % Lymphocytes % 26 % Monocytes % 6 % Eosinophils % 5 % Basophils % 0 % Neutrophils # 5.1 (1.3-7.7) k/uL Lymphocytes # 2.2 (1.0-4.8) k/uL Monocytes # 0.5 (0-1.0) k/uL Eosinophils # 0.4 (0-0.7) k/uL Basophils # 0.0 (0-0.2) k/uL PT 10.2 (9.0-12.0) sec INR 1.0 (<1.2) APTT 22.6 (22.0-30.0) sec Sample Site ABG pH (7.35-7.45) ABG pCO2 (35-45) mmHg ABG pO2 (83-108) mmHg ABG HCO3 (21-25) mmol/L ABG Total CO2 (19-24) mmol/L ABG O2 Saturation (94-97) % ABG Base Excess mmol/L Arik Test FiO2 % Sodium (137-145) mmol/L Potassium (3.5-5.1) mmol/L Chloride (98-107) mmol/L Carbon Dioxide (22-30) mmol/L Anion Gap mmol/L BUN (9-20) mg/dL Creatinine (0.66-1.25) mg/dL Est GFR (CKD-EPI)AfAm (>60 ml/min/1.73 sqM) Est GFR (CKD-EPI)NonAf (>60 ml/min/1.73 sqM) Glucose (74-99) mg/dL POC Glucose (mg/dL) 175 H (70-110) mg/dL POC Glu Head Scorer ID Belval, Sarah Calcium (8.4-10.2) mg/dL Total Bilirubin (0.2-1.3) mg/dL AST (17-59) U/L ALT (4-49) U/L Alkaline Phosphatase (38-126) U/L Creatine Kinase (55-170) U/L Troponin I (0.000-0.034) ng/mL Total Protein (6.3-8.2) g/dL Albumin (3.5-5.0) g/dL 11/19/22 11/19/22 11/19/22 Range/Units 19:05 19:05 19:09 WBC (3.8-10.6) k/uL RBC (4.30-5.90) m/uL Hgb (13.0-17.5) gm/dL Hct (39.0-53.0) % MCV (80.0-100.0) fL MCH (25.0-35.0) pg MCHC (31.0-37.0) g/dL RDW (11.5-15.5) % Plt Count (150-450) k/uL MPV Neutrophils % % Lymphocytes % % Monocytes % % Eosinophils % % Basophils % % Neutrophils # (1.3-7.7) k/uL Lymphocytes # (1.0-4.8) k/uL Monocytes # (0-1.0) k/uL Eosinophils # (0-0.7) k/uL Basophils # (0-0.2) k/uL PT (9.0-12.0) sec INR (<1.2) APTT (22.0-30.0) sec Sample Site ABG pH (7.35-7.45) ABG pCO2 (35-45) mmHg ABG pO2 (83-108) mmHg ABG HCO3 (21-25) mmol/L ABG Total CO2 (19-24) mmol/L ABG O2 Saturation (94-97) % ABG Base Excess mmol/L Arik Test FiO2 % Sodium 140 (137-145) mmol/L Potassium 4.2 (3.5-5.1) mmol/L Chloride 105 (98-107) mmol/L Carbon Dioxide 23 (22-30) mmol/L Anion Gap 12 mmol/L BUN 41 H (9-20) mg/dL Creatinine 1.21 (0.66-1.25) mg/dL Est GFR (CKD-EPI)AfAm 69 (>60 ml/min/1.73 sqM) Est GFR (CKD-EPI)NonAf 60 (>60 ml/min/1.73 sqM) Glucose 202 H (74-99) mg/dL POC Glucose (mg/dL) 195 H (70-110) mg/dL POC Glu Head Scorer ID Tj Aguiar Calcium 9.6 (8.4-10.2) mg/dL Total Bilirubin 0.5 (0.2-1.3) mg/dL AST 36 (17-59) U/L ALT 34 (4-49) U/L Alkaline Phosphatase 84 (38-126) U/L Creatine Kinase 45 L (55-170) U/L Troponin I <0.012 (0.000-0.034) ng/mL Total Protein 7.4 (6.3-8.2) g/dL Albumin 4.3 (3.5-5.0) g/dL 11/19/22 Range/Units 20:14 WBC (3.8-10.6) k/uL RBC (4.30-5.90) m/uL Hgb (13.0-17.5) gm/dL Hct (39.0-53.0) % MCV (80.0-100.0) fL MCH (25.0-35.0) pg MCHC (31.0-37.0) g/dL RDW (11.5-15.5) % Plt Count (150-450) k/uL MPV Neutrophils % % Lymphocytes % % Monocytes % % Eosinophils % % Basophils % % Neutrophils # (1.3-7.7) k/uL Lymphocytes # (1.0-4.8) k/uL Monocytes # (0-1.0) k/uL Eosinophils # (0-0.7) k/uL Basophils # (0-0.2) k/uL PT (9.0-12.0) sec INR (<1.2) APTT (22.0-30.0) sec Sample Site R brachial ABG pH 7.35 (7.35-7.45) ABG pCO2 51 H (35-45) mmHg ABG pO2 296 H (83-108) mmHg ABG HCO3 28 H (21-25) mmol/L ABG Total CO2 30 H (19-24) mmol/L ABG O2 Saturation 99.6 H (94-97) % ABG Base Excess 2.5 mmol/L Arik Test Yes FiO2 100 % Sodium (137-145) mmol/L Potassium (3.5-5.1) mmol/L Chloride (98-107) mmol/L Carbon Dioxide (22-30) mmol/L Anion Gap mmol/L BUN (9-20) mg/dL Creatinine (0.66-1.25) mg/dL Est GFR (CKD-EPI)AfAm (>60 ml/min/1.73 sqM) Est GFR (CKD-EPI)NonAf (>60 ml/min/1.73 sqM) Glucose (74-99) mg/dL POC Glucose (mg/dL) (70-110) mg/dL POC Glu Head Scorer ID Calcium (8.4-10.2) mg/dL Total Bilirubin (0.2-1.3) mg/dL AST (17-59) U/L ALT (4-49) U/L Alkaline Phosphatase (38-126) U/L Creatine Kinase (55-170) U/L Troponin I (0.000-0.034) ng/mL Total Protein (6.3-8.2) g/dL Albumin (3.5-5.0) g/dL Critical Care Time Critical Care Time: Yes Total Critical Care Time: 35 Disposition Clinical Impression: CVA (cerebral vascular accident), Respiratory failure Disposition: ADMITTED IP TO THIS HOSP Condition: Serious Is patient prescribed a controlled substance at d/c from ED?: No Referrals: None,Stated [Primary Care Provider] - 1-2 days Time of Disposition: 21:13
[2022-11-19 19:44] LABS: Partial Thromboplastin Time 22.6 sec (22.0-30.0); Prothrombin Time 10.2 sec (9.0-12.0)
[2022-11-19] MEDS ORDERED: niCARdipine 20 MG in SODIUM CHLORIDE 0.9% 192 ML IV SCH (19:45)
[2022-11-19] MEDS ORDERED: PROPOFOL 10 MG/ML 20 ML VIAL IV ONE (19:53)
[2022-11-19] MEDS ORDERED: LABETALOL 5 MG/ML VIAL MDV IVP STA (20:01)
--- NOTE | 2022-11-19 20:09 | CT ---
EXAMINATION TYPE: CT angio head neck CT DLP: 1265 mGycm, Automated exposure control for dose reduction was used. DATE OF EXAM: 11/19/2022 8:01 PM COMPARISON: CT brain same day. CLINICAL INDICATION:Male, 72 years old with history of Neuro deficit, acute, stroke suspected; TECHNIQUE: Axially acquired helical CT angiogram of the head and neck was obtained with contrast. Axi al images are supplemented with 3D reconstructions which [facility] NASCET criteria used. Contrast used: 65 cc [id number]-[id number] Oral contrast used: None. FINDINGS: Limited evaluation secondary to bolus timing and motion. CTA HEAD: There is an blind-ending tubular structure off of the right MCA in the expected location of the one s egment series 406 image 55. Measuring 6 x 4 mm. The left A1 segment is not definitively visualized. T here are is another focus of enhancement also present series 405 image 879. This is unclear which ves sels arising from as vessels leading into this focal dilation of 2 mm is diminutive and hard to follo w given motion. No evidence of acute intracranial hemorrhage, mass effect, or midline shift. The vent ricles, sulci, and cisterns are unremarkable. The visualized portions of the internal carotid arteries, middle cerebral arteries, anterior and pos terior cerebral arteries are patent. The basilar and vertebral arteries are patent. CTA NECK: Right Carotid System: The common carotid artery and external carotid artery are patent. The carotid bifurcation demonstrate s no evidence of hemodynamically significant stenosis. The remaining portions of the internal carotid artery demonstrate normal size without significant narrowing. Left Carotid System: The common carotid artery and external carotid artery are patent. The carotid bifurcation demonstrate s no evidence of hemodynamically significant stenosis. The remaining portions of the internal carotid artery demonstrate normal size without significant narrowing. Vertebral arteries are patent without evidence hemodynamically significant stenosis. There is a three-vessel aortic arch. The origins of the great vessels are patent. No evidence of hemo dynamically significant stenosis. IMPRESSION: Motion limited and contrast post limited exam. 1. There is an blind-ending tubular structure off of the right MCA in the expected location of the o ne segment series 406 image 55. Measuring 6 x 4 mm. The left A1 segment is not definitively visualize d. Lungs could represent the stump of an occluded A1 segment on the right. Versus less likely aneurys mal dilation given its tubular structure. Additional small focus near midline is also present unclear which vessel this is with focal dilation up to 2 mm. 2. No evidence of dissection of the cervical internal carotid arteries or vertebral arteries or any evidence of significant stenosis at the carotid bifurcations.
[2022-11-19 20:14] LABS: ABG Base Excess 2.5 mmol/L; ABG HCO3 28 mmol/L (21-25); ABG Oxygen Saturation 99.6 % (94-97); ABG PCO2 51 mmHg (35-45); ABG PH 7.35 (7.35-7.45); ABG PO2 296 mmHg (83-108); ABG TCO2 30 mmol/L (19-24); Allen Test Performed? Yes
--- NOTE | 2022-11-19 20:15 | XR ---
EXAMINATION TYPE: XR chest 1V portable DATE OF EXAM: 11/19/2022 8:00 PM CLINICAL INDICATION:Male, 72 years old with history of altered mental status; COMPARISON: Chest radiographs from 07/26/2020 TECHNIQUE: XR chest 1V portable Frontal view of the chest. FINDINGS: Lungs/Pleura: There is no evidence of pleural effusion, focal consolidation, or pneumothorax. Pulmonary vascularity: Pulmonary vascular congestion. Heart/mediastinum: Cardiomediastinal silhouette is enlarged and stable. Musculoskeletal: No acute osseous pathology. Other findings: None Lines/Tubes: Endotracheal tube with distal tip 5.3 cm above the charly. Nasogastric tube with side-port projecting over the distal esophagus. IMPRESSION: 1. Cardiomegaly and mild pulmonary vascular congestion. Correlate with BNP for congestive heart fail ure. 2. Nasogastric tube side-port in the distal esophagus. Consider advancement of 8.[address] acement.
[2022-11-19] MEDS ORDERED: SODIUM CHLORIDE 0.9% 50 ML MINI-BAG IV ONE ×2 (20:38→22:16)
[2022-11-19] MEDS ORDERED: DILTIAZEM DRIP BOLUS FROM BAG 1 MG SOLN IV ONE (21:08)
[2022-11-19] MEDS: SODIUM CHLORIDE 0.9% 1,000 ML IV SCH (21:21)
[2022-11-19] MEDS: DILTIAZEM 125 MG in SODIUM CHLORIDE 0.9% 100 ML IV SCH (21:33)
[2022-11-19] MEDS ORDERED: DEXAMETHASONE SOD PHOSPHATE 10 MG/ML 1 ML VIAL IVP STA (23:21)
[2022-11-20] MEDS ORDERED: methylPREDNISolone SOD SUCCI 125 MG/2 ML VIAL IV SCH (00:45)
[2022-11-20] MEDS: diphenhydrAMINE 50 MG/ML 1 ML VIAL IVP SCH ×5 (00:55→23:54)
[2022-11-20] MEDS: FAMOTIDINE 20 MG/2 ML VIAL IV SCH ×3 (01:01→21:09)
[2022-11-20] MEDS ORDERED: ATROPINE SULFATE 0.1 MG/ML 10ML SYRINGE ONE (01:20)
--- NOTE | 2022-11-20 03:06 | P.CNPUL ---
History of Present Illness Consult date: 11/20/22 Requesting physician: Domingo West Reason for consult: other (CVA; ICU management) Chief complaint: Altered mental status History of present illness: I am seeing this patient in new consultation today 11/20/2022 in the intensive care unit after he presented late last night with CVA-like symptoms and is status post tPA transfusion. Patient is a 72-year-old white male with past medical history significant for hypertension and hyperlipidemia. Patient is currently intubated on the mechanical ventilator, and is unable to provide any information. Apparently, the patient acutely became confused and unresponsive at home. There may have been a facial droop. Family called EMS, and a code stroke was activated. On arrival to the emergency room, the patient was unresponsive and vomiting. The patient was intubated by the ER physician to protect his airway. He was reportedly a difficult intubation. Post-intubation chest x-ray shows the endotracheal tube 5.3 cm from the charly. Orogastric tube could be advanced 9 cm. There were no focal infiltrates or evidence of pneumonia. There was some cardiomegaly and mild pulmonary vascular congestion. CT of the brain showed no intracranial hemorrhage, mass effect. Follow-up brain CTA showed a blind and tubular structure off the right MCA measuring 6 x 4 mm. The left A1 segment was not definitively visualized. There was a possible occlusion of the A1 segment on the right. There was no dissection or significant stenosis at the carotid bifurcations. The neuro-interventionalists and ER physician decided to administer TPA. Patient was also found to be in atrial fibrillation with rapid ventricular rate on arrival to the emergency room. He was started on Cardizem which is currently infusing at 5 mg per hour. This was presumably new onset. Patient is currently in the intensive care unit, he is intubated mechanical ventilator, and synchronous. ABGs following intubation show a pO2 of 296, PCO2 of 51, and pH of 7.35. FiO2 was decreased to 60%. Current ventilator settings are assist control, respiratory rate 14, tidal and 500, FiO2 60%, PEEP of 5. Patient is currently sedated on propofol at 45 mcg/kg/m. He is unresponsive. It is difficult to complete a neurological examination due to sedation. We will slowly wean sedation. No obvious seizure- like activity. He was loaded with Keppra in the emergency room for seizure prophylaxis. Patient does have some facial edema, especially his tongue. This developed post-TPA infusion. Patient is being treated for angioedema. He will be difficult to extubate with this edema. Heart rhythm is currently atrial fibrillation with slow ventricular rate and there are frequent unifocal PVCs, Cardizem has been paused. CBC was unremarkable. BMP on arrival shows sodium 140, potassium 4.2, chloride 105, serum bicarbonate 23, BUN 41, creatinine 1.21, glucose 202. Normal saline infusing at 75 mL per hour. Troponin less than 0.012. Patient will be monitored in the intensive care unit. Review of Systems ROS unobtainable: due to endotracheal tube Medications and Allergies Home Medications Medication Instructions Recorded Confirmed Type Citalopram Hydrobromide [CeleXA] 40 mg PO DAILY 11/19/22 11/19/22 History Enalapril [Vasotec] 20 mg PO DAILY 11/19/22 11/19/22 History Rosuvastatin [Crestor] 10 mg PO DAILY 11/19/22 11/19/22 History Tamsulosin [Flomax] 0.4 mg PO DAILY 11/19/22 11/19/22 History Triamterene/Hydrochlorothiazid 1 cap PO DAILY 11/19/22 11/19/22 History [Triamterene-Hctz 37.5-25 mg Cp] atenoloL [Tenormin] 50 mg PO DAILY 11/19/22 11/19/22 History Allergies Allergy/AdvReac Type Severity Reaction Status Date / Time No Known Allergies Allergy Verified 11/19/22 23:59 Physical Exam Vitals: Vital Signs Temp Pulse Resp BP Pulse Ox FiO2 11/20/22 02:00 75 18 123/75 96 11/20/22 01:30 67 15 121/79 97 11/20/22 01:00 98.0 F 67 14 96 60 11/20/22 00:13 82 14 123/64 95 11/20/22 00:10 76 23 114/84 95 11/20/22 00:00 105 H 17 137/94 95 11/19/22 23:50 71 19 128/77 95 11/19/22 23:30 102 H 21 145/103 96 11/19/22 23:21 60 11/19/22 23:20 106 H 19 146/98 96 11/19/22 23:10 95 27 H 164/104 96 11/19/22 23:00 93 19 148/88 96 11/19/22 22:50 110 H 19 135/106 96 11/19/22 22:40 100 18 126/87 96 11/19/22 22:30 86 20 131/115 96 11/19/22 22:20 98 20 142/78 94 L 11/19/22 22:10 93 16 116/94 95 11/19/22 22:00 105 H 18 134/88 95 11/19/22 21:50 89 10 L 135/114 94 L 11/19/22 21:40 98 23 141/90 93 L 11/19/22 21:30 122 H 31 H 124/112 93 L 11/19/22 21:20 128 H 20 125/93 94 L 11/19/22 21:10 114 H 18 153/99 93 L 11/19/22 21:00 124 H 16 138/90 93 L 11/19/22 20:50 113 H 14 109/75 92 L 11/19/22 20:40 109 H 14 131/98 92 L 11/19/22 20:30 105 H 14 132/105 93 L 11/19/22 20:20 105 H 132/105 93 L 11/19/22 20:17 60 11/19/22 19:59 123 H 172/128 95 100 11/19/22 19:53 100 11/19/22 19:39 128 H 25 H 158/125 99 11/19/22 19:01 97 F L 140 H 36 H 102/48 98 Intake and Output 11/19/22 11/19/22 11/20/22 14:59 22:59 06:59 Intake Total 55.383 121.804 Output Total 340 Balance 55.383 -218.196 Intake: Intake, IV Titration 55.383 121.804 Amount Diltiazem 125 mg In 24.583 Sodium Chloride 0.9% 100 ml @ 5 MG/HR 5 mls/hr IV .Q24H [facility] Rx#:[id number] niCARdipine 20 mg In 24.584 Sodium Chloride 0.9% 192 ml @ 5 MG/HR 50 mls/hr IV .Q4H [facility] Rx#:[id number] propofoL 1,000 mg In 30.799 97.221 Empty Bag 1 bag @ 20 MCG/ KG/MIN 19.051 mls/hr IV . Q5H15[facility] Rx#:[id number] Output: Urine 340 Other: Weight 158.757 kg GENERAL EXAM: Unresponsive and sedated, on the mechanical ventilator, and synchronous. HEAD: Normocephalic and atraumatic. Tongue edema EYES: Normal reaction of pupils, equal size. NOSE: Clear with pink turbinates. THROAT: No erythema or exudates. NECK: No masses, no JVD. CHEST: No chest wall deformity. LUNGS: Equal air entry with no crackles, wheeze, rhonchi or dullness. Intubated on mechanical ventilator CVS: S1 and S2 normal with no audible murmur, irregular rhythm. No extra heart sounds. Heart rate currently 64 bpm. ABDOMEN: No hepatosplenomegaly, active bowel sounds, no guarding or rigidity. SPINE: No scoliosis or deformity SKIN: No rashes CENTRAL NERVOUS SYSTEM: No focal deficits, he does withdrawal to painful stimuli in all 4 extremities. DTRs depressed throughout. Neutral Babinski bilaterally. EXTREMITIES: There is no peripheral edema, clubbing, or cyanosis. Peripheral pulses are intact. Results - Laboratory Findings CBC and BMP: 11/19/22 19:05 11/19/22 19:05 ABG ABG pH 7.35 (7.35-7.45) 11/19/22 20:14 ABG pCO2 51 mmHg (35-45) H 11/19/22 20:14 ABG pO2 296 mmHg (83-108) H 11/19/22 20:14 ABG O2 Saturation 99.6 % (94-97) H 11/19/22 20:14 PT/INR, D-dimer PT 10.2 sec (9.0-12.0) 11/19/22 19:05 INR 1.0 (<1.2) 11/19/22 19:05 Abnormal lab findings: Abnormal Labs 11/19/22 11/19/22 11/19/22 19:01 19:05 19:09 ABG pCO2 ABG pO2 ABG HCO3 ABG Total CO2 ABG O2 Saturation BUN 41 H Glucose 202 H POC Glucose (mg/dL) 175 H 195 H Creatine Kinase 45 L 11/19/22 20:14 ABG pCO2 51 H ABG pO2 296 H ABG HCO3 28 H ABG Total CO2 30 H ABG O2 Saturation 99.6 H BUN Glucose POC Glucose (mg/dL) Creatine Kinase - Diagnostic Findings Chest x-ray: image reviewed Assessment and Plan Assessment: Suspect acute ischemic CVA, status post TPA transfusion Mechanical ventilator management, patient was intubated for airway protection Angioedema, related to TPA Atrial fibrillation with rapid ventricular rate Benign essential hypertension Hyperlipidemia Morbid obesity, with a BMI of 47.5 kg/m Plan: Patient's medications, labs, chest x-ray reviewed Continue on the mechanical ventilator Titrate FiO2 as tolerated Propofol for sedation Start patient on Decadron, antihistamines, H2 receptor ronit Repeat chest x-ray in the morning Neuro checks per protocol Seizure precautions Neurology is consulted Post TPA brain CT is ordered Echocardiogram ordered Consult cardiology Cardizem is currently paused Atrial fibrillation is currently controlled I did speak to the patient's son and next of kin who is requesting the patient be made a DO NOT RESUSCITATE. He would like to continue with current treatment. Patient will be monitored in the intensive care unit, prognosis is guarded, related to above-mentioned comorbidities I have personally seen and examined the patient, performed the documentation and the assessment and plan as written. Number of minutes spent on the visit:20 Time with Patient: Greater than 30
[2022-11-20] MEDS: IPRATROPIUM-ALBUTEROL 3 ML NEB INHALATION SCH ×5 (03:40→21:01)
[2022-11-20] MEDS ORDERED: LORazepam 2 MG/ML INJ IV STA (04:45)
[2022-11-20] MEDS: DEXAMETHASONE SOD PHOSPHATE 4 MG/ML 1 ML VIAL IVP SCH ×4 (04:56→21:09)
[2022-11-20 06:08] LABS: ABG Base Excess 3.1 mmol/L; ABG HCO3 28 mmol/L (21-25); ABG Oxygen Saturation 97.2 % (94-97); ABG PCO2 45 mmHg (35-45); ABG PH 7.41 (7.35-7.45); ABG PO2 88 mmHg (83-108); ABG TCO2 29 mmol/L (19-24); Allen Test Performed? Yes
--- NOTE | 2022-11-20 06:58 | XR ---
EXAMINATION TYPE: XR chest 1V portable DATE OF EXAM: 11/20/2022 6:50 AM COMPARISON: Chest radiographs from 11/19/2022 TECHNIQUE: XR chest 1V portable Portable AP radiograph of the chest. CLINICAL INDICATION:Male, 72 years old with history of mechanical ventilation; FINDINGS: Lungs/Pleura: There is no evidence of pleural effusion, focal consolidation, or pneumothorax. Pulmonary vascularity: Mild pulmonary vascular congestion. Heart/mediastinum: Cardiomediastinal silhouette is enlarged and stable. Atherosclerotic calcificatio ns are seen in the aorta. Musculoskeletal: No acute osseous pathology. Other findings: None Lines/Tubes: Stable endotracheal and enteric tubes. The enteric tube courses off the image with distal tip not vis ualized. IMPRESSION: 1. Similar cardiomegaly with mild pulmonary vascular congestion. 2. Stable endotracheal and enteric tubes.
--- NOTE | 2022-11-20 07:01 | CT ---
EXAM: CT Head Without Intravenous Contrast CLINICAL HISTORY: ITS.REASON CT Reason: Seizure-like activity TECHNIQUE: Axial computed tomography images of the head/brain without intravenous contrast. CTDI is 49.2 mGy and DLP is 1261.4 mGy-cm. This CT exam was performed using one or more of the following dose reduction techniques: automated exposure control, adjustment of the mA and/or kV according to patient size, and/or use of iterative reconstruction technique. COMPARISON: No relevant prior studies available. FINDINGS: Brain: Loss of the right frontal lobe barrera-white differentiation in the distribution of the right MCA suggesting acute infarct (axial series, image 40). Bilateral basal ganglia acute infarcts suggested. Hyperdense A1/A2 segment of the right LEONARDO with probable acute infarcts involving the medial bilateral frontal lobes. No evidence of acute intracranial hemorrhage. Ventricles: Unremarkable. No ventriculomegaly. Bones/joints: Unremarkable. No acute fracture. Soft tissues: Unremarkable. Sinuses: Unremarkable as visualized. No acute sinusitis. Mastoid air cells: Unremarkable as visualized. No mastoid effusion. Bilateral proptosis. IMPRESSION: 1. Loss of the right frontal lobe barrera-white differentiation in the distribution of the right MCA suggesting acute infarct (axial series, image 40). Bilateral basal ganglia acute infarcts suggested. Hyperdense A1/A2 segment of the right LEONARDO with probable acute infarcts involving the medial bilateral frontal lobes. No evidence of acute intracranial hemorrhage. MRI of the brain is recommended for further evaluation. CTA of the head and neck also recommended. 2. Bilateral proptosis. Correlate clinically. <MYCVCSECTION> Communications: 11/20/22 07:08 Call Doctor Regarding Stroke, called ANOOP Stewart on 11/20 07: 08 (-04:00)
[2022-11-20 07:21] LABS: Basophils % (A) 0 %; Eosinophils % (A) 0 %; HCT 42.4 % (39.0-53.0); HGB 14.3 gm/dL (13.0-17.5); Lymphocytes # (A) 0.3 k/uL (1.0-4.8); Lymphocytes % (A) 3 %; MCHC 33.6 g/dL (31.0-37.0); MCV 89.3 fL (80.0-100.0); Mean Platelet Volume 7.9; Monocytes # (A) 0.2 k/uL (0-1.0); Monocytes % (A) 2 %; Neutrophils # (A) 8.9 k/uL (1.3-7.7); Neutrophils % (A) 95 %; Platelet Count 163 k/uL (150-450); RBC 4.75 m/uL (4.30-5.90); WBC 9.5 k/uL (3.8-10.6)
[2022-11-20 07:31] LABS: ALT 32 U/L (4-49); AST 34 U/L (17-59); African American GFR (CKD) >90 (>60 ml/min/1.73 sqM); Albumin 3.6 g/dL (3.5-5.0); Alkaline Phosphatase 75 U/L (38-126); Anion Gap 6 mmol/L; Blood Urea Nitrogen 36 mg/dL (9-20); Calcium 8.8 mg/dL (8.4-10.2); Carbon Dioxide 28 mmol/L (22-30); Chloride 106 mmol/L (98-107); Glucose 153 mg/dL (74-99); Non-African American GFR(CKD) 87 (>60 ml/min/1.73 sqM); Potassium 3.8 mmol/L (3.5-5.1); Sodium 140 mmol/L (137-145); Total Bilirubin 0.6 mg/dL (0.2-1.3); Total Protein 6.4 g/dL (6.3-8.2)
[2022-11-20] MEDS: levETIRAcetam IV 500 MG/5 ML VIAL IVP SCH ×3 (08:41→21:19)
[2022-11-20] MEDS: CHLORHEXIDINE GLUCONATE 15 ML CUP MUCOUS MEM SCH ×2 (08:41→21:10)
[2022-11-20] MEDS ORDERED: levETIRAcetam IV 500 MG/5 ML VIAL IVP SCH (09:00)
--- NOTE | 2022-11-20 09:21 | XR ---
EXAMINATION TYPE: XR chest 1V portable DATE OF EXAM: 11/20/2022 9:16 AM COMPARISON: Chest radiographs from 11/20/2022 TECHNIQUE: XR chest 1V portable Portable AP radiograph of the chest. CLINICAL INDICATION:Male, 72 years old with history of ETT position; FINDINGS: Lungs/Pleura: There is no evidence of pleural effusion, focal consolidation, or pneumothorax. Pulmonary vascularity: Mild pulmonary vascular congestion. Heart/mediastinum: Cardiomediastinal silhouette is enlarged and stable. Atherosclerotic calcificatio ns are seen in the aorta. Musculoskeletal: No acute osseous pathology. Other findings: None Lines/Tubes: Endotracheal tube tip is approximately 5.1 cm above the charly. The enteric tube courses off the imag e with distal tip not visualized. IMPRESSION: 1. Similar cardiomegaly with mild pulmonary vascular congestion. 2. Endotracheal tube tip is approximately 5.1 cm above the charly.
[2022-11-20] MEDS: SODIUM CHLORIDE 0.9% 1,000 ML IV SCH (11:05)
[2022-11-20 11:08] VITALS: BMI 42.8
[2022-11-20 12:48] LABS: Glucose,Whole Blood 151 mg/dL (70-110)
--- NOTE | 2022-11-20 13:25 | P.CNNES ---
History of Present Illness Consult date: 11/20/22 Requesting physician: Domingo West Reason for Consult: cva History of Present Illness: This is a 72-year-old gentleman who presented emergency department on 11/19/2022 patient was altered and unresponsive. History was obtained from medical record. Per the ED note it seems that the family was unable to arouse the patient and had abnormal respiratory pattern with facial droop that that ED reported per the family. He also had vomited multiple times at the onset. EKG showed atrial fibrillation with RVR. Seems to the patient had profuse vomiting, diaphoresis, fixed gaze and to the right. He had tremor of bilateral hands. A code stroke was activated in the ED team and patient had CT of the head and CT angiography of the head and neck and there is no bleed and it was felt there is no contraindication for the TPA per the ED team and they spoke with the stroke interventionalists (Dr. Urias) who recommended IVTPA and the family was agreeable per the ED note. Was a delay for given TPA due to the difficulty of airway and the patient requiring intubation as well as a accelerated hypertension in the setting of acute CVA. Patient received Cardene. Eventually IV TPA was given. The loading dose of IV TPA was 9 mg and the remaining regimen was 81 mg over 1 hour. The bolus was given at 2020 on 11/19/22 then 1 minute later he was given the 81 mg over 1 hour. He was also was given Keppra for sei zure prophylaxis of 2 g once as well as 2 mg Ativan. He was started on IV propofol. Of note overnight was notified to the patient was having some posturing per the nurse so I gave an additional 2 mg of Ativan and the the Keppra was increased from 1 g twice a day started during this hospital visit to 1500 mg twice a day and per nurse less of those movement after Ativan. Per the ICU nurses seems o vernight was noted after TPA wall is being evaluated he had angioedema of the tongue lips and he was given steroids as well as Benadryl. Per EMR patient is not on any anticoagulation. He is on aspirin 81 mg. He is also on Crestor 10 mg daily. Some of the workup during his hospital visit consisted of: He was tachycardic high as 140s result. Patient is afebrile. Initial CBC with differential is unremarkable Chemistry panel is initial serum glucose is 202 while the POC glucose is 175, sodium is 140, calcium is 9.6, AST ALT creatinine is within normal limits. CT of the head is reported as no acute intracranial process. CT angiography of the head and neck was reported as motion limited and contrast was limited exam. There is a blind ending tubular structure off the right MCA in the expected location of the one segment series 46 image 55. Measuring 6 x 4 mm. The left A1 segment is not definitely visualized. One could represent the stump of occluded A1 segment on the right versus less likely aneurysm dilation given the tubular structure. Additional small focus near midline is also present unclear which vessel that is with focal dilation up to 2 mm. No evidence of dissection of the cervical internal carotid artery and vertebral artery or any evidence of significant stenosis at the carotid bifurcation. Repeat CT of the head today early in the morning around 5 AM is reported as loss of right frontal loss of barrera-white differentiation in the distribution of the right MCA suggesting acute infarct. Bilateral basal ganglia infarct suggested. Hyperdense A1/A2 segment of the right LEONARDO with probable acute infarct involving the medial bilateral frontal lobes. No evidence of acute intracranial hemorrhage. I personally reviewed the CT of the head and I had that difficulty appreciating the bilateral basal ganglia acute ischemic stroke. I agree there is no bleed. Regarding the acute ischemia over the right frontal I felt if any subtle. EKG is reported as he fibrillation with RVR. Review of Systems The positive and negative as per HPI. Past Medical History Past Medical History: COPD, Hypertension Additional Past Medical History / Comment(s): "Pre-diabetes", FELICIA with Cpap, arthritis in multiple joints, BPH History of Any Multi-Drug Resistant Organisms: None Reported Past Surgical History: Back Surgery Additional Past Surgical History / Comment(s): L inguinal hernia repair, colonoscopy. Past Anesthesia/Blood Transfusion Reactions: No Reported Reaction Past Psychological History: Depression Smoking Status: Former smoker - Past Family History Father Family Medical History: Myocardial Infarction (DC) Additional Family Medical History / Comment(s): Father of a DC at the age of 64 yrs. Mother Family Medical History: No Reported History Additional Family Medical History / Comment(s): . Sister(s) Additional Family Medical History / Comment(s): The patient has one half sister that he does not know her medical history. Patient does not have any brothers. Patient has one son that is having ALLERGY testing. Son(s) Family Medical History: Hypertension Medications and Allergies Home Medications Medication Instructions Recorded Confirmed Type Citalopram Hydrobromide [CeleXA] 40 mg PO HS 03/02/19 07/28/20 History Enalapril [Vasotec] 20 mg PO HS 03/02/19 07/28/20 History Multivitamins, Thera [Multivitamin 1 tab PO HS 03/02/19 07/28/20 History (formulary)] Naproxen Sodium [Aleve] 220 mg PO Q12HR PRN 03/02/19 07/28/20 History Omeprazole Magnesium [PriLOSEC OTC] 20 mg PO HS 03/02/19 07/28/20 History Simvastatin 40 mg PO HS 03/02/19 07/28/20 History Tamsulosin HCl [Flomax] 0.4 mg PO HS 03/02/19 07/28/20 History Triamterene-Hctz 37.5-25Mg 1 cap PO HS 03/02/19 07/28/20 History [Dyazide 37.5-25 Capsule] Zinc 50 mg PO HS 03/02/19 08/03/20 History atenoloL 25 mg PO HS 03/02/19 07/28/20 History Aspirin [Adult Low Dose Aspirin EC] 81 mg PO HS 07/28/20 07/28/20 History Baclofen 10 mg PO BID 07/28/20 08/03/20 History Hydrocodone/Acetaminophen [Deane 1 tab PO Q6HR PRN 07/28/20 08/03/20 History 7.5-325] HYDROcodone/APAP 7.5-325MG [Deane 1 tab PO Q4H PRN #42 tab 08/03/20 Rx 7.5-325] Citalopram Hydrobromide [CeleXA] 40 mg PO DAILY 11/19/22 11/19/22 History Enalapril [Vasotec] 20 mg PO DAILY 11/19/22 11/19/22 History Rosuvastatin [Crestor] 10 mg PO DAILY 11/19/22 11/19/22 History Tamsulosin [Flomax] 0.4 mg PO DAILY 11/19/22 11/19/22 History Triamterene/Hydrochlorothiazid 1 cap PO DAILY 11/19/22 11/19/22 History [Triamterene-Hctz 37.5-25 mg Cp] atenoloL [Tenormin] 50 mg PO DAILY 11/19/22 11/19/22 History Allergies Allergy/AdvReac Type Severity Reaction Status Date / Time latex Allergy Rash/Hives Verified 11/20/22 12:50 Physical Examination - Vital Signs Vital Signs: Vital Signs Temp Pulse Resp BP Pulse Ox FiO2 11/20/22 12:00 98.3 F 87 18 136/74 97 55 11/20/22 11:43 91 11/20/22 11:30 87 11 L 140/89 96 11/20/22 11:11 90 55 11/20/22 11:00 93 21 131/87 97 11/20/22 10:30 88 19 132/87 97 11/20/22 10:00 85 20 132/84 97 11/20/22 09:36 55 11/20/22 09:30 80 20 131/115 97 11/20/22 09:00 81 22 127/92 97 11/20/22 08:30 73 19 124/75 96 11/20/22 08:00 98.3 F 76 14 127/76 97 60 11/20/22 07:49 74 11/20/22 07:44 60 11/20/22 07:30 62 21 127/84 97 11/20/22 07:00 75 19 130/87 96 11/20/22 06:30 66 19 127/79 97 11/20/22 06:00 70 18 131/86 96 11/20/22 05:30 131/103 11/20/22 05:00 82 32 H 125/88 98 11/20/22 04:30 75 18 129/77 98 11/20/22 04:00 98.9 F 73 19 134/88 98 60 11/20/22 03:57 68 11/20/22 03:44 60 11/20/22 03:40 71 11/20/22 03:30 76 23 126/93 97 11/20/22 03:10 60 11/20/22 03:00 73 19 134/89 97 11/20/22 02:58 60 11/20/22 02:30 76 14 123/78 97 11/20/22 02:00 75 18 123/75 96 11/20/22 01:30 67 15 121/79 97 11/20/22 01:00 98.0 F 67 14 96 60 11/20/22 00:13 82 14 123/64 95 11/20/22 00:10 76 23 114/84 95 11/20/22 00:00 105 H 17 137/94 95 11/19/22 23:50 71 19 128/77 95 11/19/22 23:30 102 H 21 145/103 96 11/19/22 23:21 60 11/19/22 23:20 106 H 19 146/98 96 11/19/22 23:10 95 27 H 164/104 96 11/19/22 23:00 93 19 148/88 96 11/19/22 22:50 110 H 19 135/106 96 11/19/22 22:40 100 18 126/87 96 11/19/22 22:30 86 20 131/115 96 11/19/22 22:20 98 20 142/78 94 L 11/19/22 22:10 93 16 116/94 95 11/19/22 22:00 105 H 18 134/88 95 11/19/22 21:50 89 10 L 135/114 94 L 11/19/22 21:40 98 23 141/90 93 L 11/19/22 21:30 122 H 31 H 124/112 93 L 11/19/22 21:20 128 H 20 125/93 94 L 11/19/22 21:10 114 H 18 153/99 93 L 11/19/22 21:00 124 H 16 138/90 93 L 11/19/22 20:50 113 H 14 109/75 92 L 11/19/22 20:40 109 H 14 131/98 92 L 11/19/22 20:30 105 H 14 132/105 93 L 11/19/22 20:20 105 H 132/105 93 L 11/19/22 20:17 60 11/19/22 19:59 123 H 172/128 95 100 11/19/22 19:39 128 H 25 H 158/125 99 11/19/22 19:01 97 F L 140 H 36 H 102/48 98 Intake and Output 11/19/22 11/20/22 11/20/22 22:59 06:59 14:59 Intake Total 55.383 314.343 340.810 Output Total 505 305 Balance 55.383 -190.657 35.810 Intake: Intake, IV Titration 55.383 314.343 340.810 Amount Diltiazem 125 mg In 24.583 Sodium Chloride 0.9% 100 ml @ 5 MG/HR 5 mls/hr IV .Q24H JENI Rx#:[id number] Sodium Chloride 0.9% 1, 150 000 ml @ 75 mls/hr IV . [id number] JENI Rx#:[id number] niCARdipine 20 mg In 24.584 Sodium Chloride 0.9% 192 ml @ 5 MG/HR 50 mls/hr IV .Q4H JENI Rx#:[id number] propofoL 1,000 mg In 30.799 289.760 190.810 Empty Bag 1 bag @ 20 MCG/ KG/MIN 19.051 mls/hr IV . Q5H15M JENI Rx#:[id number] Output: Urine 505 305 Other: Voiding Method Indwelling Catheter Weight 158.757 kg 143.4 kg 143.4 kg General: Lying in bed and does not appear in acute distress. Respiratory: Intubated on ventilator. Neuro: Very limited because of overall condition. Is on IV Propofol 40mcg/kg/min. Comatose. He is not following commands or attempting to verbalize I had to manually open his eyes in the primary gaze is midline. Pupils are round 2 mm bilaterally and around and sluggishly reactive to light. No facial weakness. The patient had the tongue edema Motor the strength is unable to assess individual muscle strength and the patient is not spontaneously moving extremities to painful some light throughout extremities there is ?slight withdrawal throughout I felt the patient had few episodes of jerks over the the left side. The bulk is normal in the tone is a mildly to moderately decreased throughout. Reflexes as 1 positive throughout. Plantars is mute bilaterally. Results - Laboratory Findings CBC and BMP: 11/20/22 06:37 11/20/22 06:37 Abnormal Lab Findings: Abnormal Labs 11/19/22 11/19/22 11/19/22 19:01 19:05 19:09 Neutrophils # Lymphocytes # ABG pCO2 ABG pO2 ABG HCO3 ABG Total CO2 ABG O2 Saturation BUN 41 H Glucose 202 H POC Glucose (mg/dL) 175 H 195 H Creatine Kinase 45 L 11/19/22 11/20/22 11/20/22 20:14 06:10 06:37 Neutrophils # Lymphocytes # ABG pCO2 51 H ABG pO2 296 H ABG HCO3 28 H 28 H ABG Total CO2 30 H 29 H ABG O2 Saturation 99.6 H 97.2 H BUN 36 H Glucose 153 H POC Glucose (mg/dL) Creatine Kinase 11/20/22 11/20/22 06:37 12:46 Neutrophils # 8.9 H Lymphocytes # 0.3 L ABG pCO2 ABG pO2 ABG HCO3 ABG Total CO2 ABG O2 Saturation BUN Glucose POC Glucose (mg/dL) 151 H Creatine Kinase Assessment and Plan Assessment: a 72-year-old gentleman who presented emergency department on 11/19/2022 because he was found unresponsive and unarousable by family members. Was felt that he had facial droop. Per the ED he had the profuse vomiting, diaphoresis a fixed gaze to the right as well as tremor bilateral hands. Per the ED team complete neurological assessment is not possible and the patient because of his overall condition but they felt the NIH is a high upon speaking to them. He was given IV TPA and there is a delay because of the needing airway protection as well as accelerated hypertension. On CT angiography of the head and neck is red reported as occluded A1 segment on the right versus less likely aneurysm as well as possible right MCA stenosis/occlusion. Repeat CT of the head was reported as possible right MCA infarct with bilateral basal ganglia infarct suggested as well as probable medial bilateral frontal infarct. Likely acute ischemic stroke post IV tPA. Tremor of bilateral hand with questionable seizure-like activity and was found unresponsive at home Angioedema related to the TPA and the patient was given steroids and Benadryl New onset Atrial fibrillation with RVR Accelerated hypertension Patient intubated on a mechanical ventilator for a reproduction. History of hypertension Hyperlipidemia Plan: We'll get a repeat CT of the head later today we 4 hours post IV tPA. I spoke with the reading radiologist (Dr. Caldera) regarding the reported bilateral basal ganglia, bilateral frontal ischemic stroke and the initially he did not see them but then upon further evaluation he felt the the report seemed accurate and recommended MRI the brain for further evaluation. Once the patient is extubated then we'll pursue MRI of the brain. Post [address] is negative for bleed then recommend starting the patient on aspirin 81 mg and Plavix 75 mg daily. Start the patient on Lipitor 80 mg daily at bedtime for secondary stroke prophylaxis Ordered the an EEG Patient is started on Keppra 1500 mg twice a day and are hospital for the suspected seizures. Lipid panels order is pending I ordered TSH, hemoglobin A1c. Urine drug screen is ordered and is pending 2-D echo was ordered and is pending Continue Neuro checks per TPA protocol Continue cardiac monitoring. PT OT and NUTRITION SERVICES ASSOCIATE are consulted Per TPA recommend systolic blood pressure to be less than 185 and diastolic less than 110 We'll defer the rest of the medical management with primary team For DVT prophylaxis use SCDs. Plan was discussed with the ICU attending and the nurse. Thank you for the consultation UPDATE: In late afternoon, I spoke with patient's son. Per son yesterday at home just after dinner patient was watching t.v. and then started snoring and became unresponsiveness and son noticed left facial droop. EMS was called. No jerking of extremity, foaming around the mouth. No history of Stroke, seizure or A-fib in past. He has history of HTN and Borderline DM. I updated son of the work-up results. Time with Patient: Greater than 30
--- NOTE | 2022-11-20 14:47 | P.CRDCN ---
History of Present Illness History of present illness: HISTORY OF PRESENTING ILLNESS Patient is a pleasant 72-year-old male with history of FELICIA, hypertension, diabetes mellitus, and new onset atrial fibrillation who presents secondary to unresponsive episode. Family noticed him sitting in a chair and then noticed a facial droop and called emergency department. He was diagnosed with a right MCA stroke and given TPA. After TPA was given he was noted to have increased swelling of the tongue. He was found to be in atrial fibrillation with mild RVR and initially started on Cardizem drip however since then has noted to be borderline bradycardic and therefore the Cardizem drip has been discontinued. He has not been responsive and therefore intubated and sedated. REVIEW OF SYSTEMS At the time of my exam: Unable to obtain secondary to altered mental status, intubated PHYSICAL EXAMINATION Vital signs reviewed. CONSTITUTIONAL: No apparent distress, intubated and sedated, obese HEENT: Head is normocephalic. Pupils are equal, round. Sclerae anicteric. +angioedema No JVD. No carotid bruit. CHEST EXAMINATION: Lungs are clear to auscultation. No chest wall tenderness is noted on palpation or with deep breathing. HEART EXAMINATION: Regular rate and rhythm. S1, S2 heard. No murmurs, gallops or rub. ABDOMEN: Soft, nontender. Positive bowel sounds. EXTREMITIES: 2+ peripheral pulses, no lower extremity edema and no calf tenderness. NEUROLOGIC EXAMINATION: Patient is sedated and intubated. ASSESSMENT 1. Acute stroke 2. New-onset atrial fibrillation initially RVR currently controlled 3. Hypertension 4. Hyperlipidemia 5. Obesity 6. Angioedema, not likely related to ROSSANA-i, possibly correlated with TPA PLAN Patient with acute stroke, likely related to atrial fibrillation. He is status post TPA. Start anticoagulation when cleared by neurology. Currently appears rate controlled and use Cardizem as needed. Check 2-D echo. Further recommendations following. Past Medical History Past Medical History: COPD, Hypertension Additional Past Medical History / Comment(s): "Pre-diabetes", FELICIA with Cpap, arthritis in multiple joints, BPH History of Any Multi-Drug Resistant Organisms: None Reported Past Surgical History: Back Surgery Additional Past Surgical History / Comment(s): L inguinal hernia repair, colonoscopy. Past Anesthesia/Blood Transfusion Reactions: No Reported Reaction Past Psychological History: Depression Smoking Status: Former smoker - Past Family History Father Family Medical History: Myocardial Infarction ([place]) Additional Family Medical History / Comment(s): Father of a [place] at the age of 64 yrs. Mother Family Medical History: No Reported History Additional Family Medical History / Comment(s): . Sister(s) Additional Family Medical History / Comment(s): The patient has one half sister that he does not know her medical history. Patient does not have any brothers. Patient has one son that is having ALLERGY testing. Son(s) Family Medical History: Hypertension Medications and Allergies Home Medications Medication Instructions Recorded Confirmed Type Citalopram Hydrobromide [CeleXA] 40 mg PO HS 03/02/19 07/28/20 History Enalapril [Vasotec] 20 mg PO HS 03/02/19 07/28/20 History Multivitamins, Thera [Multivitamin 1 tab PO HS 03/02/19 07/28/20 History (formulary)] Naproxen Sodium [Aleve] 220 mg PO Q12HR PRN 03/02/19 07/28/20 History Omeprazole Magnesium [PriLOSEC OTC] 20 mg PO HS 03/02/19 07/28/20 History Simvastatin 40 mg PO HS 03/02/19 07/28/20 History Tamsulosin HCl [Flomax] 0.4 mg PO HS 03/02/19 07/28/20 History Triamterene-Hctz 37.5-25Mg 1 cap PO HS 03/02/19 07/28/20 History [Dyazide 37.5-25 Capsule] Zinc 50 mg PO HS 03/02/19 08/03/20 History atenoloL 25 mg PO HS 03/02/19 07/28/20 History Aspirin [Adult Low Dose Aspirin EC] 81 mg PO HS 07/28/20 07/28/20 History Baclofen 10 mg PO BID 07/28/20 08/03/20 History Hydrocodone/Acetaminophen [[place] 1 tab PO Q6HR PRN 07/28/20 08/03/20 History 7.5-325] HYDROcodone/APAP 7.5-325MG [[place] 1 tab PO Q4H PRN #42 tab 08/03/20 Rx 7.5-325] Citalopram Hydrobromide [CeleXA] 40 mg PO DAILY 11/19/22 11/19/22 History Enalapril [Vasotec] 20 mg PO DAILY 11/19/22 11/19/22 History Rosuvastatin [Crestor] 10 mg PO DAILY 11/19/22 11/19/22 History Tamsulosin [Flomax] 0.4 mg PO DAILY 11/19/22 11/19/22 History Triamterene/Hydrochlorothiazid 1 cap PO DAILY 11/19/22 11/19/22 History [Triamterene-Hctz 37.5-25 mg Cp] atenoloL [Tenormin] 50 mg PO DAILY 11/19/22 11/19/22 History Allergies Allergy/AdvReac Type Severity Reaction Status Date / Time latex Allergy Rash/Hives Verified 11/20/22 12:50 Physical Exam Vitals: Vital Signs Temp Pulse Resp BP Pulse Ox FiO2 11/20/22 14:00 81 20 120/78 97 11/20/22 13:30 80 20 123/76 97 11/20/22 13:00 80 20 121/70 97 11/20/22 12:30 70 19 124/80 97 11/20/22 12:00 98.3 F 87 18 136/74 97 55 11/20/22 11:43 91 11/20/22 11:30 87 11 L 140/89 96 11/20/22 11:11 90 55 11/20/22 11:00 93 21 131/87 97 11/20/22 10:30 88 19 132/87 97 11/20/22 10:00 85 20 132/84 97 11/20/22 09:36 55 11/20/22 09:30 80 20 131/115 97 11/20/22 09:00 81 22 127/92 97 11/20/22 08:30 73 19 124/75 96 11/20/22 08:00 98.3 F 76 14 127/76 97 60 11/20/22 07:49 74 11/20/22 07:44 60 11/20/22 07:30 62 21 127/84 97 11/20/22 07:00 75 19 130/87 96 11/20/22 06:30 66 19 127/79 97 11/20/22 06:00 70 18 131/86 96 11/20/22 05:30 131/103 11/20/22 05:00 82 32 H 125/88 98 11/20/22 04:30 75 18 129/77 98 11/20/22 04:00 98.9 F 73 19 134/88 98 60 11/20/22 03:57 68 11/20/22 03:44 60 11/20/22 03:40 71 11/20/22 03:30 76 23 126/93 97 11/20/22 03:10 60 11/20/22 03:00 73 19 134/89 97 11/20/22 02:58 60 11/20/22 02:30 76 14 123/78 97 11/20/22 02:00 75 18 123/75 96 11/20/22 01:30 67 15 121/79 97 11/20/22 01:00 98.0 F 67 14 96 60 11/20/22 00:13 82 14 123/64 95 11/20/22 00:10 76 23 114/84 95 11/20/22 00:00 105 H 17 137/94 95 11/19/22 23:50 71 19 128/77 95 11/19/22 23:30 102 H 21 145/103 96 11/19/22 23:21 60 11/19/22 23:20 106 H 19 146/98 96 11/19/22 23:10 95 27 H 164/104 96 11/19/22 23:00 93 19 148/88 96 11/19/22 22:50 110 H 19 135/106 96 11/19/22 22:40 100 18 126/87 96 11/19/22 22:30 86 20 131/115 96 11/19/22 22:20 98 20 142/78 94 L 11/19/22 22:10 93 16 116/94 95 11/19/22 22:00 105 H 18 134/88 95 11/19/22 21:50 89 10 L 135/114 94 L 11/19/22 21:40 98 23 141/90 93 L 11/19/22 21:30 122 H 31 H 124/112 93 L 11/19/22 21:20 128 H 20 125/93 94 L 11/19/22 21:10 114 H 18 153/99 93 L 11/19/22 21:00 124 H 16 138/90 93 L 11/19/22 20:50 113 H 14 109/75 92 L 11/19/22 20:40 109 H 14 131/98 92 L 11/19/22 20:30 105 H 14 132/105 93 L 11/19/22 20:20 105 H 132/105 93 L 11/19/22 20:17 60 11/19/22 19:59 123 H 172/128 95 100 11/19/22 19:39 128 H 25 H 158/125 99 11/19/22 19:01 97 F L 140 H 36 H 102/48 98 Intake and Output 11/19/22 11/20/22 11/20/22 22:59 06:59 14:59 Intake Total 55.383 314.343 490.810 Output Total 505 480 Balance 55.383 -190.657 10.810 Intake: Intake, IV Titration 55.383 314.343 490.810 Amount Diltiazem 125 mg In 24.583 Sodium Chloride 0.9% 100 ml @ 5 MG/HR 5 mls/hr IV .Q24H [facility] Rx#:[id number] Sodium Chloride 0.9% 1, 300 000 ml @ 75 mls/hr IV . [id number] [facility] Rx#:[id number] niCARdipine 20 mg In 24.584 Sodium Chloride 0.9% 192 ml @ 5 MG/HR 50 mls/hr IV .Q4H [facility] Rx#:[id number] propofoL 1,000 mg In 30.799 289.760 190.810 Empty Bag 1 bag @ 20 MCG/ KG/MIN 19.051 mls/hr IV . Q5H15M [facility] Rx#:[id number] Output: Urine 505 480 Other: Voiding Method Indwelling Catheter Indwelling Catheter Weight 158.757 kg 143.4 kg 143.4 kg Results 11/20/22 06:37 11/20/22 06:37 Cardiac Enzymes 11/19/22 11/19/22 11/20/22 Range/Units 19:05 19:05 06:37 AST 36 34 (17-59) U/L Troponin I <0.012 (0.000-0.034) ng/mL Coagulation 11/19/22 Range/Units 19:05 PT 10.2 (9.0-12.0) sec APTT 22.6 (22.0-30.0) sec CBC 11/19/22 11/20/22 Range/Units 19:05 06:37 WBC 8.5 9.5 (3.8-10.6) k/uL RBC 5.28 4.75 (4.30-5.90) m/uL Hgb 15.3 14.3 (13.0-17.5) gm/dL Hct 47.1 42.4 (39.0-53.0) % Plt Count 189 163 (150-450) k/uL Comprehensive Metabolic Panel 11/19/22 11/20/22 Range/Units 19:05 06:37 Sodium 140 140 (137-145) mmol/L Potassium 4.2 3.8 (3.5-5.1) mmol/L Chloride 105 106 (98-107) mmol/L Carbon Dioxide 23 28 (22-30) mmol/L BUN 41 H 36 H (9-20) mg/dL Creatinine 1.21 0.87 (0.66-1.25) mg/dL Glucose 202 H 153 H (74-99) mg/dL Calcium 9.6 8.8 (8.4-10.2) mg/dL AST 36 34 (17-59) U/L ALT 34 32 (4-49) U/L Alkaline Phosphatase 84 75 (38-126) U/L Total Protein 7.4 6.4 (6.3-8.2) g/dL Albumin 4.3 3.6 (3.5-5.0) g/dL Current Medications Generic Name Dose Route Start Last Admin Trade Name Freq PRN Reason Stop Dose Admin Albuterol/Ipratropium 3 ml 11/20/22 04:00 11/20/22 11:11 Ipratropium-Albuterol 3 Ml Neb INHALATION 3 ml RT-Q4H JENI Administration Chlorhexidine Gluconate 15 ml 11/20/22 09:00 11/20/22 08:41 Chlorhexidine Gluconate 15 Ml Cup MUCOUS MEM 15 ml BID JENI Administration Dexamethasone Sodium Phosphate 4 mg 11/20/22 04:00 11/20/22 08:41 Dexamethasone Sod Phosphate 4 Mg/Ml 1 Ml Vial IVP 4 mg Q6H JENI Administration Diphenhydramine HCl 25 mg 11/20/22 00:34 11/20/22 12:38 Diphenhydramine 50 Mg/Ml 1 Ml Vial IVP 25 mg Q6HR JENI Administration Famotidine 20 mg 11/20/22 00:45 11/20/22 08:41 Famotidine 20 Mg/2 Ml Vial IV 20 mg Q12HR JENI Administration Propofol 1,000 mg/ IV Solution 100 mls @ 19.051 mls/hr 11/19/22 20:00 11/20/22 12:23 IV 40 mcg/kg/min .Q5H15M JENI 38.102 mls/hr Administration Protocol 20 MCG/KG/MIN Sodium Chloride 1,000 mls @ 75 mls/hr 11/19/22 21:15 11/20/22 11:05 Saline 0.9% IV 75 mls/hr .[id number] JENI Administration Diltiazem HCl 125 mg/ Sodium 125 mls @ 5 mls/hr 11/19/22 21:15 11/20/22 00:50 Chloride IV 0 mg/hr .Q24H JENI 0 mls/hr Infusion 5 MG/HR Levetiracetam 1,500 mg 11/20/22 09:00 11/20/22 10:47 Levetiracetam Iv 500 Mg/5 Ml Vial IVP 1,500 mg Q12HR JENI Administration Miscellaneous Information 0 each 11/19/22 19:37 Alteplase Per Pharmacy Stroke 1 Each Misc MISCELLANE DIRECTED PRN STROKE Intake and Output 11/19/22 11/20/22 11/20/22 22:59 06:59 14:59 Intake Total 55.383 314.343 490.810 Output Total 505 480 Balance 55.383 -190.657 10.810 Intake: Intake, IV Titration 55.383 314.343 490.810 Amount Diltiazem 125 mg In 24.583 Sodium Chloride 0.9% 100 ml @ 5 MG/HR 5 mls/hr IV .Q24H [facility] Rx#:[id number] Sodium Chloride 0.9% 1, 300 000 ml @ 75 mls/hr IV . [id number] [facility] Rx#:[id number] niCARdipine 20 mg In 24.584 Sodium Chloride 0.9% 192 ml @ 5 MG/HR 50 mls/hr IV .Q4H [facility] Rx#:[id number] propofoL 1,000 mg In 30.799 289.760 190.810 Empty Bag 1 bag @ 20 MCG/ KG/MIN 19.051 mls/hr IV . Q5H15M [facility] Rx#:[id number] Output: Urine 505 480 Other: Voiding Method Indwelling Catheter Indwelling Catheter Weight 158.757 kg 143.4 kg 143.4 kg Patient Weight 11/21/22 06:59 Weight 143.4 kg 11/20/22 06:37 11/20/22 06:37
--- NOTE | 2022-11-20 15:22 | P.HPIM ---
History of Present Illness H&P Date: 11/20/22 Chief Complaint: Altered mental status Patient is a 72-year-old male with a past medical history of hypertension, COPD, depression and prior history of smoking was brought to the hospital by EMS due to strokelike symptoms, left facial droop and altered mental status. Recommend of family patient was in the recliner after dinner and started snoring. Patient's family went in to check. He did not respond with sternal rub and also noted to have left facial droop and protruding tongue. Was also having labored breathing and involuntary movements as well. Family noticed that he was looking towards the right. EMS was called and patient was brought to ER. Upon arrival to ER patient was unresponsive and was vomiting. He was intubated in the ER for airway protection. Patient had difficult intubation. . Patient had CT head showed nonspecific white matter changes. Likely secondary to chronic small vessel ischemic disease. CT angiogram of the head and neck showed there is a blind ending tubular structure of the right MCA in the expected location of the one segment failure is. The left ear one segment is not definitely visualized. This could represent the stump of an occluded A1 segment on the right. Worsens less likely aneurysmal dilation given the tubular structure. Additional small focus near the midline is also present unclear which vessel disease with focal dilation up to 2 mL. No evidence of dissection of the cervical internal carotid arteries and vertebral arteries are any evidence of significant stenosis at the carotid bifurcations. Chest x-ray showed cardiomegaly and mild pulmonary vascular congestion. Qualitative BNP for congestive heart failure. EKG showed atrial fibrillation with a rapid Response with heart rate 131. Patient was given TPA in the ER. Patient was also started on seizure prophylaxis with Keppra IV. Patient was transferred to MICU. Repeat CT head this morning showed loss of the right frontal lobe barrera-white dif ferentiation in the distribution of right MCA suggesting acute infarct. Bilateral basilar ganglia acute infarct suggested. Possibly involving bilateral medial bilateral frontal lobes without evidence of acute intracranial hemorrhage. Bilateral proptosis. Sodium 140 potassium 4.2, chloride 105 bicarb is 23 BUN 41 and creatinine 1.21 and blood sugar 202 Liver enzymes not elevated. Troponin 1 negative. WBC 8.4 hemoglobin 15.3 and platelets 189 Review of Systems ROS unobtainable: due to endotracheal tube Past Medical History Past Medical History: COPD, Hypertension History of Any Multi-Drug Resistant Organisms: None Reported Past Surgical History: Back Surgery Past Anesthesia/Blood Transfusion Reactions: No Reported Reaction Past Psychological History: Depression Smoking Status: Former smoker - Past Family History Son(s) Family Medical History: Hypertension Father Family Medical History: Myocardial Infarction ([place]) Additional Family Medical History / Comment(s): Father of a [place] at the age of 64 yrs. Mother Family Medical History: No Reported History Additional Family Medical History / Comment(s): . Sister(s) Additional Family Medical History / Comment(s): The patient has one half sister that he does not know her medical history. Patient does not have any brothers. Patient has one son that is having ALLERGY testing. Medications and Allergies Home Medications Medication Instructions Recorded Confirmed Type Citalopram Hydrobromide [CeleXA] 40 mg PO HS 03/02/19 07/28/20 History Enalapril [Vasotec] 20 mg PO HS 03/02/19 07/28/20 History Multivitamins, Thera [Multivitamin 1 tab PO HS 03/02/19 07/28/20 History (formulary)] Naproxen Sodium [Aleve] 220 mg PO Q12HR PRN 03/02/19 07/28/20 History Omeprazole Magnesium [PriLOSEC OTC] 20 mg PO HS 03/02/19 07/28/20 History Simvastatin 40 mg PO HS 03/02/19 07/28/20 History Tamsulosin HCl [Flomax] 0.4 mg PO HS 03/02/19 07/28/20 History Triamterene-Hctz 37.5-25Mg 1 cap PO HS 03/02/19 07/28/20 History [Dyazide 37.5-25 Capsule] Zinc 50 mg PO HS 03/02/19 08/03/20 History atenoloL 25 mg PO HS 03/02/19 07/28/20 History Aspirin [Adult Low Dose Aspirin EC] 81 mg PO HS 07/28/20 07/28/20 History Baclofen 10 mg PO BID 07/28/20 08/03/20 History Hydrocodone/Acetaminophen [[place] 1 tab PO Q6HR PRN 07/28/20 08/03/20 History 7.5-325] HYDROcodone/APAP 7.5-325MG [[place] 1 tab PO Q4H PRN #42 tab 08/03/20 Rx 7.5-325] Citalopram Hydrobromide [CeleXA] 40 mg PO DAILY 11/19/22 11/19/22 History Enalapril [Vasotec] 20 mg PO DAILY 11/19/22 11/19/22 History Rosuvastatin [Crestor] 10 mg PO DAILY 11/19/22 11/19/22 History Tamsulosin [Flomax] 0.4 mg PO DAILY 11/19/22 11/19/22 History Triamterene/Hydrochlorothiazid 1 cap PO DAILY 11/19/22 11/19/22 History [Triamterene-Hctz 37.5-25 mg Cp] atenoloL [Tenormin] 50 mg PO DAILY 11/19/22 11/19/22 History Allergies Allergy/AdvReac Type Severity Reaction Status Date / Time latex Allergy Rash/Hives Verified 11/20/22 12:50 Physical Exam Vitals: Vital Signs Temp Pulse Resp BP Pulse Ox FiO2 11/20/22 09:36 55 11/20/22 08:00 98.3 F 76 14 127/76 97 60 11/20/22 07:49 74 11/20/22 07:44 60 11/20/22 07:30 62 21 127/84 97 11/20/22 07:00 75 19 130/87 96 11/20/22 06:30 66 19 127/79 97 11/20/22 06:00 70 18 131/86 96 11/20/22 05:30 131/103 11/20/22 05:00 82 32 H 125/88 98 11/20/22 04:30 75 18 129/77 98 11/20/22 04:00 98.9 F 73 19 134/88 98 60 11/20/22 03:57 68 11/20/22 03:44 60 11/20/22 03:40 71 11/20/22 03:30 76 23 126/93 97 11/20/22 03:10 60 11/20/22 03:00 73 19 134/89 97 11/20/22 02:58 60 11/20/22 02:30 76 14 123/78 97 11/20/22 02:00 75 18 123/75 96 11/20/22 01:30 67 15 121/79 97 11/20/22 01:00 98.0 F 67 14 96 60 11/20/22 00:13 82 14 123/64 95 11/20/22 00:10 76 23 114/84 95 11/20/22 00:00 105 H 17 137/94 95 11/19/22 23:50 71 19 128/77 95 11/19/22 23:30 102 H 21 145/103 96 11/19/22 23:21 60 11/19/22 23:20 106 H 19 146/98 96 11/19/22 23:10 95 27 H 164/104 96 11/19/22 23:00 93 19 148/88 96 11/19/22 22:50 110 H 19 135/106 96 11/19/22 22:40 100 18 126/87 96 11/19/22 22:30 86 20 131/115 96 11/19/22 22:20 98 20 142/78 94 L 11/19/22 22:10 93 16 116/94 95 11/19/22 22:00 105 H 18 134/88 95 11/19/22 21:50 89 10 L 135/114 94 L 11/19/22 21:40 98 23 141/90 93 L 11/19/22 21:30 122 H 31 H 124/112 93 L 11/19/22 21:20 128 H 20 125/93 94 L 11/19/22 21:10 114 H 18 153/99 93 L 11/19/22 21:00 124 H 16 138/90 93 L 11/19/22 20:50 113 H 14 109/75 92 L 11/19/22 20:40 109 H 14 131/98 92 L 11/19/22 20:30 105 H 14 132/105 93 L 11/19/22 20:20 105 H 132/105 93 L 11/19/22 20:17 60 11/19/22 19:59 123 H 172/128 95 100 11/19/22 19:39 128 H 25 H 158/125 99 11/19/22 19:01 97 F L 140 H 36 H 102/48 98 Intake and Output 11/19/22 11/20/22 11/20/22 22:59 06:59 14:59 Intake Total 55.383 314.343 26.195 Output Total 505 45 Balance 55.383 -190.657 -18.805 Intake: Intake, IV Titration 55.383 314.343 26.195 Amount Diltiazem 125 mg In 24.583 Sodium Chloride 0.9% 100 ml @ 5 MG/HR 5 mls/hr IV .Q24H [facility] Rx#:[id number] niCARdipine 20 mg In 24.584 Sodium Chloride 0.9% 192 ml @ 5 MG/HR 50 mls/hr IV .Q4H [facility] Rx#:[id number] propofoL 1,000 mg In 30.799 289.760 26.195 Empty Bag 1 bag @ 20 MCG/ KG/MIN 19.051 mls/hr IV . Q5H15M [facility] Rx#:[id number] Output: Urine 505 45 Other: Voiding Method Indwelling Catheter Weight 158.757 kg 143.4 kg PHYSICAL EXAMINATION: Patient is currently intubated and on mechanical ventilator rate.. HEENT: Normocephalic. Neck is supple. Pupils reactive. Nostrils clear. Oral cavity is moist. Tongue is swollen. Neck reveals no JVD, carotid bruits, or thyromegaly. CHEST EXAMINATION: Trachea is central. Symmetrical expansion. Bibasilar diminished sounds. No wheezing or rhonchi.. CARDIAC: Normal S1, S2 with no gallops. No murmurs. Irregularly irregular rhythm. ABDOMEN: Soft. Bowel sounds normal. No organomegaly. No abdominal bruits. Extremities: reveal no edema. No clubbing or cyanosis Neurologically patient is intubated. Sedated. left facial droop. Skin: No rash or skin lesions. Psychiatric: Could not be assessed. Musculoskeletal: No joint swelling or deformity. Results CBC & Chem 7: 11/20/22 06:37 11/20/22 06:37 Labs: Abnormal Lab Results - Last 24 Hours (Table) 11/19/22 11/19/22 11/19/22 Range/Units 19:01 19:05 19:09 Neutrophils # (1.3-7.7) k/uL Lymphocytes # (1.0-4.8) k/uL ABG pCO2 (35-45) mmHg ABG pO2 (83-108) mmHg ABG HCO3 (21-25) mmol/L ABG Total CO2 (19-24) mmol/L ABG O2 Saturation (94-97) % BUN 41 H (9-20) mg/dL Glucose 202 H (74-99) mg/dL POC Glucose (mg/dL) 175 H 195 H (70-110) mg/dL Creatine Kinase 45 L (55-170) U/L 11/19/22 11/20/22 11/20/22 Range/Units 20:14 06:10 06:37 Neutrophils # (1.3-7.7) k/uL Lymphocytes # (1.0-4.8) k/uL ABG pCO2 51 H (35-45) mmHg ABG pO2 296 H (83-108) mmHg ABG HCO3 28 H 28 H (21-25) mmol/L ABG Total CO2 30 H 29 H (19-24) mmol/L ABG O2 Saturation 99.6 H 97.2 H (94-97) % BUN 36 H (9-20) mg/dL Glucose 153 H (74-99) mg/dL POC Glucose (mg/dL) (70-110) mg/dL Creatine Kinase (55-170) U/L 11/20/22 Range/Units 06:37 Neutrophils # 8.9 H (1.3-7.7) k/uL Lymphocytes # 0.3 L (1.0-4.8) k/uL ABG pCO2 (35-45) mmHg ABG pO2 (83-108) mmHg ABG HCO3 (21-25) mmol/L ABG Total CO2 (19-24) mmol/L ABG O2 Saturation (94-97) % BUN (9-20) mg/dL Glucose (74-99) mg/dL POC Glucose (mg/dL) (70-110) mg/dL Creatine Kinase (55-170) U/L Thrombosis Risk Factor Assmnt - DVT/VTE Prophylaxis DVT/VTE Prophylaxis: Mechanical Prophylaxis ordered - Choose All That Apply Any of the Below Risk Factors Present?: Yes Each Factor Represents 1 point: Medical pt on bed rest, Obesity (BMI >25) Other Risk Factors: Yes Each Risk Factor Represents 2 Points: Age 61-74 years Other congenital or acquired thrombophilia - If yes, enter type in comment: No Thrombosis Risk Factor Assessment Total Risk Factor Score: 4 Thrombosis Risk Factor Assessment Level: Moderate Risk Assessment and Plan Assessment: 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 Patient is status post tPA was in the ER. Status post mechanical ventilator for airway protection. New onset atrial fibrillation with rapid ventricular rate Angioedema likely related to TPA Hypertension Hyperlipidemia COPD Prior history of smoking Morbid obesity BMI 42.9 DVT prophylaxis Plan: Patient is currently on mechanical ventilator and is also sedated. Continue with neuro checks and seizure precautions.. Patient was started on dexamethasone and gentle IV hydration. Patient was started on Cardizem drip for heart rate control. 2-D echocardiogram was ordered. Neurology was consulted and repeat CT head was ordered. Continue to follow closely. Prognosis is guarded. Cord status changed to DO NOT RESUSCITATE/DO NOT INTUBATE as per family agreement. Time with Patient: Greater than 30
[2022-11-20 15:24] LABS: LDL Cholesterol,Calculated 68.7 mg/dL (0.0-131.0)
[2022-11-20 18:04] LABS: Glucose,Whole Blood 180 mg/dL (70-110)
--- NOTE | 2022-11-20 18:35 | EEG ---
ELECTROENCEPHALOGRAM REPORT CLINICAL HISTORY: This is a 72-year-old gentleman who was found unresponsive at home and was found to have tremors in our ED. The EEG is performed to evaluate for seizure epileptiform discharges. RELEVANT MEDICATIONS: Keppra, Ativan, IV propofol. EEG TYPE: This is a routine 21-channel EEG with video using the 10/20 electrode placement system. DESCRIPTION: The patient is intubated on a ventilator. The background consists of low voltage of 5 to 6 hertz activity that is nonrhythmic, polymorphic theta activity intermixed with diffuse delta activity. There is no physiological stage 2 sleep architecture. There is no focal slowing. Interictal and ictal is none. ACTIVATION PROCEDURE: Photic stimulation did not evoke a posterior driving response. There is no abnormality during the photic stimulation. Hyperventilation is not performed. CLINICAL INTERPRETATION: This is an abnormal routine EEG. The background slowing is suggestive of moderate-to- severe encephalopathy. There is no focal slowing, epileptiform discharge, or seizure on the EEG. Clinical correlation is recommended. MMTIM / DINORAN: [id number] / BRITNEY
[2022-11-20] MEDS: DILTIAZEM 125 MG in SODIUM CHLORIDE 0.9% 100 ML IV SCH (22:44)
[2022-11-20] MEDS ORDERED: Lacosamide IV (ages 17+ yrs) 200 MG/20 ML ML IVP STA (23:13)
--- NOTE | 2022-11-20 23:28 | CT ---
EXAMINATION TYPE: CT brain wo con DATE OF EXAM: 11/20/2022 HISTORY: POST TPA INFUSION. NEURO DEFICIT. PRIORS ON PACS. CT DLP: 1202.4 mGycm. Automated Exposure Control for Dose Reduction was Utilized. TECHNIQUE: CT scan of the head is performed without contrast. COMPARISON: Most recent prior CT earlier today. FINDINGS: There is no acute intracranial hemorrhage or midline shift identified. There is more prom inent well defined low signal involving the bilateral frontal lobes with heterogeneity extending to i nclude the head of caudate nuclei and anterior limb of the right internal capsule axial image 29 for reference. Some more superior extension on the left axial image 37 is noted. Additional area of heter ogeneous low signal involving the high posterior right frontal lobe axial image 44 is noted. Prominen t anterior hyperdense vessel is noted. No midline shift. No acute intracranial hemorrhage. The globes are intact and the visualized sinuses are clear. Right sided cerumen redemonstrated axial image 12. IMPRESSION: Better visualize the evolving acute/subacute infarcts through the bilateral frontal lobes as detailed above. No new acute intracranial hemorrhage or midline shift.
[2022-11-20] MEDS ORDERED: ASPIRIN 325 MG TAB PO STA (23:29)
[2022-11-20] MEDS: HEPARIN SODIUM,PORCINE 5,000 UNIT/ML 1 ML VIAL SQ SCH (23:54)
[2022-11-21] MEDS: SODIUM CHLORIDE 0.9% 1,000 ML IV SCH ×2 (00:07→13:30)
[2022-11-21 00:10] LABS: Glucose,Whole Blood 168 mg/dL (70-110)
[2022-11-21] MEDS: IPRATROPIUM-ALBUTEROL 3 ML NEB INHALATION SCH ×5 (00:44→10:35)
[2022-11-21] MEDS: DILTIAZEM 125 MG in SODIUM CHLORIDE 0.9% 100 ML IV SCH ×2 (03:15→08:47)
[2022-11-21] MEDS ORDERED: AMIODARONE 360 MG in DEXTROSE 5% IN WATER 200 ML IV ONE ×2 (04:45)
[2022-11-21] MEDS: DEXAMETHASONE SOD PHOSPHATE 4 MG/ML 1 ML VIAL IVP SCH ×2 (04:55→10:40)
[2022-11-21 05:44] LABS: ABG Base Excess -3.3 mmol/L; ABG HCO3 22 mmol/L (21-25); ABG Oxygen Saturation 97.8 % (94-97); ABG PCO2 37 mmHg (35-45); ABG PH 7.38 (7.35-7.45); ABG PO2 101 mmHg (83-108); ABG TCO2 23 mmol/L (19-24); Allen Test Performed? Yes
[2022-11-21 05:46] LABS: Glucose,Whole Blood 201 mg/dL (70-110)
[2022-11-21 06:10] LABS: Basophils % (A) 0 %; Eosinophils % (A) 0 %; HCT 46.2 % (39.0-53.0); HGB 14.6 gm/dL (13.0-17.5); Lymphocytes # (A) 0.3 k/uL (1.0-4.8); Lymphocytes % (A) 2 %; MCH 28.7 pg (25.0-35.0); MCHC 31.7 g/dL (31.0-37.0); MCV 90.5 fL (80.0-100.0); Mean Platelet Volume 8.7; Monocytes # (A) 0.8 k/uL (0-1.0); Monocytes % (A) 6 %; Neutrophils % (A) 91 %; Platelet Count 145 k/uL (150-450); RBC 5.11 m/uL (4.30-5.90); RDW 14.2 % (11.5-15.5); WBC 13.1 k/uL (3.8-10.6)
[2022-11-21] MEDS: diphenhydrAMINE 50 MG/ML 1 ML VIAL IVP SCH ×2 (06:15→12:11)
[2022-11-21 06:26] LABS: African American GFR (CKD) >90 (>60 ml/min/1.73 sqM); Anion Gap 15 mmol/L; Blood Urea Nitrogen 28 mg/dL (9-20); Calcium 8.9 mg/dL (8.4-10.2); Carbon Dioxide 20 mmol/L (22-30); Chloride 107 mmol/L (98-107); Glucose 202 mg/dL (74-99); Non-African American GFR(CKD) 84 (>60 ml/min/1.73 sqM); Potassium 3.4 mmol/L (3.5-5.1); Sodium 142 mmol/L (137-145)
[2022-11-21] MEDS ORDERED: Potassium Replacement Protocol 1 EACH MISC MISCELLANE PRN (06:46)
[2022-11-21] MEDS: POTASSIUM BICARBONATE/CIT AC 20 MEQ TABLET.EFF NG-TUBE SCH ×2 (06:59→08:16)
--- NOTE | 2022-11-21 07:21 | XR ---
EXAMINATION TYPE: XR chest 1V portable DATE OF EXAM: 11/21/2022 COMPARISON: 11/20/2022 HISTORY: SOB, Follow Up FINDINGS: Indwelling tubes and catheters are unchanged. No change in bibasilar opacities. Stable appearance of the cardio-mediastinal structures at this time. IMPRESSION: 1. Stable portable chest. Clinical correlation and follow up until resolution is recommended.
[2022-11-21] MEDS: HEPARIN SODIUM,PORCINE 5,000 UNIT/ML 1 ML VIAL SQ SCH (08:15)
[2022-11-21] MEDS: FAMOTIDINE 20 MG/2 ML VIAL IV SCH (08:15)
[2022-11-21] MEDS: levETIRAcetam IV 500 MG/5 ML VIAL IVP SCH (08:16)
[2022-11-21] MEDS: CHLORHEXIDINE GLUCONATE 15 ML CUP MUCOUS MEM SCH (08:17)
[2022-11-21] MEDS ORDERED: LORazepam 2 MG/ML INJ IV PRN ×2 (08:57→12:56)
[2022-11-21] MEDS ORDERED: ASPIRIN 325 MG TAB PO SCH (09:00)
[2022-11-21] MEDS ORDERED: Lacosamide IV (ages 17+ yrs) 200 MG/20 ML ML IVP SCH (09:00)
[2022-11-21] MEDS ORDERED: CLOPIDOGREL 75 MG TAB PO SCH (10:00)
[2022-11-21] MEDS ORDERED: DEXTROSE 50% SYRINGE 50 ML IVP PRN ×2 (10:34)
[2022-11-21] MEDS ORDERED: AMIODARONE 450 MG in DEXTROSE 5% IN WATER 250 ML IV SCH ×2 (11:00)
[2022-11-21 11:17] VITALS: RESP 22
--- NOTE | 2022-11-21 11:48 | P.PN ---
Subjective Progress Note Date: 11/21/22 Principal diagnosis: Acute CVA I am seeing this patient in new consultation today 11/20/2022 in the intensive care unit after he presented late last night with CVA-like symptoms and is status post tPA transfusion. Patient is a 72-year-old white male with past medical history significant for hypertension and hyperlipidemia. Patient is currently intubated on the mechanical ventilator, and is unable to provide any information. Apparently, the patient acutely became confused and unresponsive at home. There may have been a facial droop. Family called EMS, and a code stroke was activated. On arrival to the emergency room, the patient was unresponsive and vomiting. The patient was intubated by the ER physician to protect his airway. He was reportedly a difficult intubation. Post-intubation chest x-ray shows the endotracheal tube 5.3 cm from the charly. Orogastric tube could be advanced 9 cm. There were no focal infiltrates or evidence of pneumonia. There was some cardiomegaly and mild pulmonary vascular congestion. CT of the brain showed no intracranial hemorrhage, mass effect. Follow-up brain CTA showed a blind and tubular structure off the right MCA measuring 6 x 4 mm. The left A1 segment was not definitively visualized. There was a possible occlusion of the A1 segment on the right. There was no dissection or significant stenosis at the carotid bifurcations. The neuro-interventionalists and ER physician decided to administer TPA. Patient was also found to be in atrial fibrillation with rapid ventricular rate on arrival to the emergency lisa . He was started on Cardizem which is currently infusing at 5 mg per hour. This was presumably new onset. Patient is currently in the intensive care unit, he is intubated mechanical ventilator, and synchronous. ABGs following intubation show a pO2 of 296, PCO2 of 51, and pH of 7.35. FiO2 was decreased to 60%. Current ventilator settings are assist control, respiratory rate 14, tidal and 500, FiO2 60%, PEEP of 5. Patient is currently sedated on propofol at 45 mcg/kg/m. He is unresponsive. It is difficult to complete a neurological examination due to sedation. We will slowly wean sedation. No obvious seizure- like activity. He was loaded with Keppra in the emergency room for seizure pr ophylaxis. Patient does have some facial edema, especially his tongue. This developed post-TPA infusion. Patient is being treated for angioedema. He will be difficult to extubate with this edema. Heart rhythm is currently atrial fibrillation with slow ventricular rate and there are frequent unifocal PVCs, Cardizem has been paused. CBC was unremarkable. BMP on arrival shows sodium 140, potassium 4.2, chloride 105, serum bicarbonate 23, BUN 41, creatinine 1.21, glucose 202. Normal saline infusing at 75 mL per hour. Troponin less than 0.012. Patient will be monitored in the intensive care unit. Patient was reevaluated today on 11/21/2022, remains in the ICU, intubated and mechanically ventilated. Patient is on assist control rate of 14 tidal volume 500 FiO2 50% and PEEP of 8. ABG showed a pO2 of 101 pCO2 37 pH of 7.38 hence no changes were made in his vent settings. CT of the brain last night showed evolving bilateral frontal lobe CVA. Patient is still requiring significant s edation, he is on propofol at 50 mcg/kg/m for his atrial fibrillation the patient remains on amiodarone at 1 mg/m is also on Cardizem 15 mg per hour. IV fluid is 75 mL an hour of 0.9 normal saline. Patient seems to be having myoclonic jerks he had an EEG yesterday, and there was no evidence of seizure activity. Ativan was given for his jerks, and he seems to be restless hence I'm recommending more sedation if necessary with increasing the dose of propofol. Obviously the patient is not quite ready for weaning although his angioedema seems to be resolving and much per her today compared to yesterday, in the meantime patient remains on Decadron. Chest x-ray showed mostly minimal atelectasis. Bibasilar. No clear-cut evidence of pneumonia. WBC count is 13.1 hemoglobin 14.6 electrolytes are normal except for low potassium of 3.4, BUN is 28 creatinine 0.92. Objective - Vital Signs Vital signs: Vital Signs Temp 98.3 F 11/21/22 08:00 Pulse 86 11/21/22 11:00 Resp 22 11/21/22 11:00 BP 93/61 11/21/22 11:00 Pulse Ox 96 11/21/22 11:00 FiO2 50 11/21/22 10:35 Intake & Output 11/20/22 11/21/22 11/21/22 18:59 06:59 18:59 Intake Total 490.392 7565.664 744.263 Output Total 870 1210 195 Balance 119.240 202.664 549.263 Weight 143.4 kg 144 kg Intake: IV 600 900 375 Sodium Chloride 0.9% 1, 600 900 375 000 ml @ 75 mls/hr IV . [id number] JENI Rx#:[id number] Intake, IV Titration 389.240 452.664 369.263 Amount Diltiazem 125 mg In 5 75.5 Sodium Chloride 0.9% 100 ml @ 5 MG/HR 5 mls/hr IV .Q24H JENI Rx#:[id number] propofoL 1,000 mg In 389.240 447.664 293.763 Empty Bag 1 bag @ 20 MCG/ KG/MIN 19.051 mls/hr IV . Q5H15M JENI Rx#:[id number] Other 60 Output: Urine 870 1210 195 Other: Voiding Method Indwelling Catheter Indwelling Catheter - Exam Physical Exam: Revealed a 72-year-old white male in no distress intubated, mechanically ventilated. Head: Atraumatic, normocephalic. Endotracheal tube and orogastric tubes are intact. HEENT:[Neck is supple.] [No neck masses.] [No thyromegaly.] [No JVD.] Chest: Diminished breath sounds at the bases no crackles or rhonchi or wheezes Cardiac Exam: [Irregular irregular rhythm. Normal S1 and S2, no S3 gallop, no murmur.] Abdomen: [Soft, nontender, no megaly, no rebound, no guarding, normal bowel sounds.] Extremities: [No clubbing, no edema, no cyanosis.] Neurological Exam: Patient is noted to be restless agitated, at times asynchronous with the ventilator. And he is having what seems to be myoclonic jerks. Could not assess mental status. Psychiatric: Could not be assessed. Skin: No rashes. - Labs CBC & Chem 7: 11/21/22 05:26 11/21/22 05:26 Labs: Abnormal Lab Results - Last 24 Hours (Table) 11/20/22 11/20/22 11/21/22 Range/Units 12:46 18:02 00:09 WBC (3.8-10.6) k/uL Plt Count (150-450) k/uL Neutrophils # (1.3-7.7) k/uL Lymphocytes # (1.0-4.8) k/uL ABG O2 Saturation (94-97) % Potassium (3.5-5.1) mmol/L Carbon Dioxide (22-30) mmol/L BUN (9-20) mg/dL Glucose (74-99) mg/dL POC Glucose (mg/dL) 151 H 180 H 168 H (70-110) mg/dL 11/21/22 11/21/22 11/21/22 Range/Units 05:26 05:26 05:43 WBC 13.1 H (3.8-10.6) k/uL Plt Count 145 L (150-450) k/uL Neutrophils # 12.0 H (1.3-7.7) k/uL Lymphocytes # 0.3 L (1.0-4.8) k/uL ABG O2 Saturation 97.8 H (94-97) % Potassium 3.4 L (3.5-5.1) mmol/L Carbon Dioxide 20 L (22-30) mmol/L BUN 28 H (9-20) mg/dL Glucose 202 H (74-99) mg/dL POC Glucose (mg/dL) (70-110) mg/dL 11/21/22 Range/Units 05:44 WBC (3.8-10.6) k/uL Plt Count (150-450) k/uL Neutrophils # (1.3-7.7) k/uL Lymphocytes # (1.0-4.8) k/uL ABG O2 Saturation (94-97) % Potassium (3.5-5.1) mmol/L Carbon Dioxide (22-30) mmol/L BUN (9-20) mg/dL Glucose (74-99) mg/dL POC Glucose (mg/dL) 201 H (70-110) mg/dL Microbiology - Last 24 Hours (Table) 11/19/22 19:57 Gram Stain - Preliminary Sputum Assessment and Plan Assessment: Impression: Acute ischemic CVA, status post TPA Acute hypoxic respiratory failure secondary to acute CVA and intubated for airway protection Acute angioedema secondary to TPA New Onset Atrial fibrillation with RVR requiring Cardizem and amiodarone Benign essential hypertension Dyslipidemia Morbid obesity with BMI of 47.5 Recommendation: Continue ventilatory support Awaiting echocardiogram report patient was seen by cardiology Anticoagulation therapy as per neurology on the case post thrombolytics Intermittent sedation interruption and assessment of mental status on a daily basis Continue nutritional support/enteral feeding via orogastric tube. Patient is definitely not quite ready for any weaning trials at this point. Continue antiarrhythmic agents for his atrial fibrillation/RVR including Cardizem and amiodarone Continue Decadron for his angioedema and will cut down the dose Continue seizure precautions and seizure medications as felt necessary by neurology Remains critically ill Critical care time is over 30 minutes Time with Patient: Greater than 30
[2022-11-21] MEDS ORDERED: INSULIN ASPART (NovoLOG) 100 UNIT/ML VIAL SQ SCH (12:00)
[2022-11-21 12:06] LABS: Glucose,Whole Blood 156 mg/dL (70-110)
[2022-11-21 12:17] LABS: Glucose,Whole Blood 151 mg/dL (70-110)
[2022-11-21 12:32] VITALS: TEMP 99
[2022-11-21] MEDS ORDERED: ATROPINE OPHTH SOLN 1% 5ML BTL SUBLINGUAL PRN (12:50)
[2022-11-21] MEDS ORDERED: MORPHINE SULFATE 2 MG/ML SYRINGE IV PRN (12:50)
[2022-11-21] MEDS ORDERED: SCOPOLAMINE 1 MG/72 HR PATCH TRANSDERM SCH (13:00)
[2022-11-21 13:24] VITALS: BP 108/67
[2022-11-21] MEDS: MORPHINE SULFATE (100 MG/2 ML) 100 MG in SODIUM CHLORIDE 0.9% 100 ML IV SCH ×2 (13:29→16:43)
--- NOTE | 2022-11-21 13:31 | P.PN ---
Subjective Progress Note Date: 11/21/22 I am following-up with the patient and per the patient's nurse is about the same. He continued to be intubated on a ventilator and he continues to be on IV propofol. The nurse she continues to have the jerks of the body. Objective - Vital Signs Vital signs: Vital Signs Temp 99 F 11/21/22 12:00 Pulse 80 11/21/22 13:00 Resp 22 11/21/22 13:00 BP 108/67 11/21/22 13:00 Pulse Ox 97 11/21/22 13:00 FiO2 50 11/21/22 12:00 Intake & Output 11/20/22 11/21/22 11/21/22 18:59 06:59 18:59 Intake Total 971.251 9121.664 894.263 Output Total 870 1210 275 Balance 119.240 202.664 619.263 Weight 143.4 kg 144 kg Intake: IV 600 900 525 Sodium Chloride 0.9% 1, 600 900 525 000 ml @ 75 mls/hr IV . [id number] JENI Rx#:[id number] Intake, IV Titration 389.240 452.664 369.263 Amount Diltiazem 125 mg In 5 75.5 Sodium Chloride 0.9% 100 ml @ 5 MG/HR 5 mls/hr IV .Q24H JENI Rx#:[id number] propofoL 1,000 mg In 389.240 447.664 293.763 Empty Bag 1 bag @ 20 MCG/ KG/MIN 19.051 mls/hr IV . Q5H15M JENI Rx#:[id number] Other 60 Output: Urine 870 1210 275 Other: Voiding Method Indwelling Catheter Indwelling Catheter Indwelling Catheter - Exam General: Lying in bed and does not appear in acute distress. Respiratory: Intubated on ventilator. Neuro: Very limited because of overall condition. Is on IV Propofol 50mcg/kg/min. Comatose. He is not following commands or attempting to verbalize I had to manually open his eyes in the primary gaze is midline. Pupils are r ound 2 mm bilaterally and around and sluggishly reactive to light. No facial weakness. The patient had the tongue edema Motor the strength is unable to assess individual muscle strength and the chandrakant ent is not spontaneously moving extremities to painful some light throughout extremities there is ?slight withdrawal throughout I felt the patient had few episodes of jerks over the the left side which is same. The bulk is normal in the tone is a mildly to moderately decreased throughout. Some of the workup during his hospital visit consisted of: He was tachycardic high as 140s result. Patient is afebrile. Initial CBC with differential is unremarkable Lipid panel is triglycerides 103, cholesterol is 139, LDL 68 and HDL is 49. TSH is 2.210. CK levels of 45. Chemistry panel is initial serum glucose is 202 while the POC glucose is 175, sodium is 140, calcium is 9.6, AST ALT creatinine is within normal limits. CT of the head is reported as no acute intracranial process. CT angiography of the head and neck was reported as motion limited and contrast was limited exam. There is a blind ending tubular structure off the right MCA in the expected location of the one segment series 46 image 55. Measuring 6 x 4 mm. The left A1 segment is not definitely visualized. One could represent the stump of occluded A1 segment on the right versus less likely aneurysm dilation given the tubular structure. Additional small focus near midline is also present unclear which vessel that is with focal dilation up to 2 mm. No evidence of dissection of the cervical internal carotid artery and vertebral artery or any evidence of significant stenosis at the carotid bifurcation. Repeat CT of the head today early in the morning around 5 AM is reported as loss of right frontal loss of barrera-white differentiation in the distribution of the right MCA suggesting acute infarct. Bilateral basal ganglia infarct suggested. Hyperdense A1/A2 segment of the right LEONARDO with probable acute infarct involving the medial bilateral frontal lobes. No evidence of acute intracranial hemorrhage. I personally reviewed the CT of the head and I had that difficulty appreciating the bilateral basal ganglia acute ischemic stroke. I agree there is no bleed. Regarding the acute ischemia over the right frontal I felt if any subtle. EKG is reported as he fibrillation with RVR. Routine EEG is abnormal. The background slowing suggestive of moderate to severe encephalopathy. There is no focal slowing, epileptiform discharges or seizure on the EEG. Repeat CT of the head on 11/20/2022 close to midnight (24 hours post IV tpa): It is reported as better visualize the evolving acute/subacute infarct through the bilateral frontal lobe as detailed above. No new acute intracranial hemorrhage or midline shift. I personally reviewed this to the head and I felt the patient had the in addition to the better visualization of frontal he had that cerebellar stroke left more than the right, right hypodensity lateral to the caudate also hypodensity over the left frontal parietal region as well as of the right frontal parietal region as well. I personally called the reading radiologist Dr. Jose and he agreed it seems more than bilateral medial frontal. - Labs CBC & Chem 7: 11/21/22 05:26 11/21/22 05:26 Labs: Abnormal Lab Results - Last 24 Hours (Table) 11/20/22 11/21/22 11/21/22 Range/Units 18:02 00:09 05:26 WBC 13.1 H (3.8-10.6) k/uL Plt Count 145 L (150-450) k/uL Neutrophils # 12.0 H (1.3-7.7) k/uL Lymphocytes # 0.3 L (1.0-4.8) k/uL ABG O2 Saturation (94-97) % Potassium (3.5-5.1) mmol/L Carbon Dioxide (22-30) mmol/L BUN (9-20) mg/dL Glucose (74-99) mg/dL POC Glucose (mg/dL) 180 H 168 H (70-110) mg/dL 11/21/22 11/21/22 11/21/22 Range/Units 05:26 05:43 05:44 WBC (3.8-10.6) k/uL Plt Count (150-450) k/uL Neutrophils # (1.3-7.7) k/uL Lymphocytes # (1.0-4.8) k/uL ABG O2 Saturation 97.8 H (94-97) % Potassium 3.4 L (3.5-5.1) mmol/L Carbon Dioxide 20 L (22-30) mmol/L BUN 28 H (9-20) mg/dL Glucose 202 H (74-99) mg/dL POC Glucose (mg/dL) 201 H (70-110) mg/dL 11/21/22 11/21/22 Range/Units 12:05 12:16 WBC (3.8-10.6) k/uL Plt Count (150-450) k/uL Neutrophils # (1.3-7.7) k/uL Lymphocytes # (1.0-4.8) k/uL ABG O2 Saturation (94-97) % Potassium (3.5-5.1) mmol/L Carbon Dioxide (22-30) mmol/L BUN (9-20) mg/dL Glucose (74-99) mg/dL POC Glucose (mg/dL) 156 H 151 H (70-110) mg/dL Microbiology - Last 24 Hours (Table) 11/19/22 19:57 Gram Stain - Preliminary Sputum Assessment and Plan Assessment: a 72-year-old gentleman who presented emergency department on 11/19/2022 because he was found unresponsive and unarousable by family members. Was felt that he had facial droop. Per the ED he had the profuse vomiting, diaphoresis a fixed gaze to the right as well as tremor bilateral hands. Per the ED team complete neurological assessment is not possible and the patient because of his overall condition but they felt the NIH is a high upon speaking to them. He was given IV TPA and there is a delay because of the needing airway protection as well as accelerated hypertension. On CT angiography of the head and neck is red reported as occluded A1 segment on the right versus less likely aneurysm as well as possible right MCA stenosis/occlusion. Repeat CT of the head was reported as possible right MCA infarct with bilateral basal ganglia infarct suggested as well as probable medial bilateral frontal infarct. Acute ischemic stroke over bilateral hemisphere post IV tPA: Seems cardioembolic especially with new onset atrial fibrillation Tremor of bilateral hand with questionable seizure-like activity and was found unresponsive at home: On EEG no seizure or discharges. Angioedema related to the TPA and the patient was given steroids and Benadryl New onset Atrial fibrillation with RVR Accelerated hypertension Patient intubated on a mechanical ventilator for a reproduction. History of hypertension Hyperlipidemia Plan: Started the patient on aspirin 325 daily at home he was on 81 mg daily. In addition I also started the patient on the Plavix 75 mg daily. I also started the patient on Lipitor 40 mg daily at bedtime for signature prophylaxis For these questionable seizure patient is on Keppra 1500 mg twice a day as well as I started him on Vimpat that yesterday 50 mg twice a day I initially ordered a routine EEG as a repeat to make sure there is no seizure discharges that were not seen on the initial EEG. Continue neuro checks Cardiac monitoring 2-D echo is pending Radiology is on board We'll defer the rest of the medical management to primary team For DVT prophylaxis I started the patient on subcu heparin 5000 units every 12 hours I spoke with the patient's son and [id number] afterwards and that they stated the patient's wishes was to be DO NOT RESUSCITATE. We'll consult hospice per the son's wishes. The family's leading towards likely comfort care measures The nurse was at bedside regarding son's wishes. Therefore, will discontinue EEG. Time with Patient: Less than 30
--- NOTE | 2022-11-21 13:52 | P.PN ---
Subjective Progress Note Date: 11/21/22 HISTORY OF PRESENTING ILLNESS Patient is a pleasant 72-year-old male with history of FELICIA, hypertension, di abetes mellitus, and new onset atrial fibrillation who presents secondary to unresponsive episode. Family noticed him sitting in a chair and then noticed a facial droop and called emergency department. He was diagnosed with a right MCA stroke and given TPA. After TPA was given he was noted to have increased swelling of the tongue. He was found to be in atrial fibrillation with mild RVR and initially started on Cardizem drip however since then has noted to be borderline bradycardic and therefore the Cardizem drip has been discontinued. He has not been responsive and therefore intubated and sedated. Progress Note 11/21/22 Patient had a repeat CT done 24 hours after the TPA which showed possible right MCA infarct with bilateral basal ganglion infarct as well as probable medial bilateral frontal infarct. Due to extensive nature of CVA and possible she is a light activity patient's ov erall prognosis is very poor. The neurologist initiated the conversation with the family and they decided to proceed with comfort measures. REVIEW OF SYSTEMS At the time of my exam: Unable to obtain secondary to altered mental status, intubated PHYSICAL EXAMINATION Vital signs reviewed. CONSTITUTIONAL: No apparent distress, intubated and sedated, obese HEENT: Head is normocephalic. Pupils are equal, round. Sclerae anicteric. +angioedema No JVD. No carotid bruit. CHEST EXAMINATION: Lungs are clear to auscultation. No chest wall tenderness is noted on palpation or with deep breathing. HEART EXAMINATION: Regular rate and rhythm. S1, S2 heard. No murmurs, gallops or rub. ABDOMEN: Soft, nontender. Positive bowel sounds. EXTREMITIES: 2+ peripheral pulses, no lower extremity edema and no calf tenderness. NEUROLOGIC EXAMINATION: Patient is sedated and intubated. ASSESSMENT 1. Acute stroke 2. New-onset atrial fibrillation initially RVR currently controlled 3. Hypertension 4. Hyperlipidemia 5. Obesity 6. Angioedema, not likely related to ROSSANA-i, possibly correlated with TPA PLAN Comfort measures initiated Continue further recommendations as per neurological team and primary medical team. Cardiology team will sign off at this time Objective - Vital Signs Vital signs: Vital Signs Temp 99 F 11/21/22 12:00 Pulse 80 11/21/22 13:00 Resp 22 11/21/22 13:00 BP 108/67 11/21/22 13:00 Pulse Ox 97 11/21/22 13:00 FiO2 50 11/21/22 12:00 Intake & Output 11/20/22 11/21/22 11/21/22 18:59 06:59 18:59 Intake Total 362.790 4837.664 894.637 Output Total 870 1210 275 Balance 119.240 202.664 619.637 Weight 143.4 kg 144 kg Intake: IV 600 900 525 Sodium Chloride 0.9% 1, 600 900 525 000 ml @ 75 mls/hr IV . [id number] JENI Rx#:[id number] Intake, IV Titration 389.240 452.664 369.637 Amount Diltiazem 125 mg In 5 75.5 Sodium Chloride 0.9% 100 ml @ 5 MG/HR 5 mls/hr IV .Q24H JENI Rx#:[id number] Morphine Sulfate (100 mg/ 0.374 2 ml) 100 mg In Sodium Chloride 0.9% 100 ml @ 1 MG/HR 1.02 mls/hr IV . Q24H JENI Rx#:[id number] propofoL 1,000 mg In 389.240 447.664 293.763 Empty Bag 1 bag @ 20 MCG/ KG/MIN 19.051 mls/hr IV . Q5H15M JENI Rx#:[id number] Other 60 Output: Urine 870 1210 275 Other: Voiding Method Indwelling Catheter Indwelling Catheter Indwelling Catheter - Labs CBC & Chem 7: 11/21/22 05:26 11/21/22 05:26 Labs: Abnormal Lab Results - Last 24 Hours (Table) 11/20/22 11/21/22 11/21/22 Range/Units 18:02 00:09 05:26 WBC 13.1 H (3.8-10.6) k/uL Plt Count 145 L (150-450) k/uL Neutrophils # 12.0 H (1.3-7.7) k/uL Lymphocytes # 0.3 L (1.0-4.8) k/uL ABG O2 Saturation (94-97) % Potassium (3.5-5.1) mmol/L Carbon Dioxide (22-30) mmol/L BUN (9-20) mg/dL Glucose (74-99) mg/dL POC Glucose (mg/dL) 180 H 168 H (70-110) mg/dL 11/21/22 11/21/22 11/21/22 Range/Units 05:26 05:43 05:44 WBC (3.8-10.6) k/uL Plt Count (150-450) k/uL Neutrophils # (1.3-7.7) k/uL Lymphocytes # (1.0-4.8) k/uL ABG O2 Saturation 97.8 H (94-97) % Potassium 3.4 L (3.5-5.1) mmol/L Carbon Dioxide 20 L (22-30) mmol/L BUN 28 H (9-20) mg/dL Glucose 202 H (74-99) mg/dL POC Glucose (mg/dL) 201 H (70-110) mg/dL 11/21/22 11/21/22 Range/Units 12:05 12:16 WBC (3.8-10.6) k/uL Plt Count (150-450) k/uL Neutrophils # (1.3-7.7) k/uL Lymphocytes # (1.0-4.8) k/uL ABG O2 Saturation (94-97) % Potassium (3.5-5.1) mmol/L Carbon Dioxide (22-30) mmol/L BUN (9-20) mg/dL Glucose (74-99) mg/dL POC Glucose (mg/dL) 156 H 151 H (70-110) mg/dL Microbiology - Last 24 Hours (Table) 11/19/22 19:57 Gram Stain - Preliminary Sputum
[2022-11-21] MEDS: MORPHINE SULFATE 4 MG/ML SYRINGE IV PRN ×3 (13:56→16:43)
[2022-11-21 14:01] VITALS: PULSE 99
--- NOTE | 2022-11-21 16:48 | CDI ---
Documentation Clarification Form Date: 11/21/2022 03:58:35 PM From: Nilda More Phone: [phone] Admit Date: 11/19/2022 09:13:00 PM Patient Name: Nixon Powers Visit Number: [id number] Discharge Date: ATTENTION: The Clinical Documentation Specialists (CDI) and [facility] Coding Staff appreciate your assistance in clarifying documentation. Please respond to the clarification below the line at the bottom and electronically sign. The CDI & [facility] Coding staff will review the response and follow-up if needed. Please note: Queries are made part of the Legal Health Record. If you have any questions, please contact the author of this message via ITS. Dr. Vijay Mullen Your patient has the documented symptom of Altered Mental Status 11/20, H&P. Additional clarification regarding the etiology/cause of this symptom is requested. History/Risk Factors: 72-year-old male presented by EMS due to stroke like symptoms, left facial droop and altered mental status. Medical history: HTN, COPD and history of smoking. 11/20/ H&P Clinical Indicators: CT angio head and neck, 11/20: 1.There is an blind-ending tubular structure off of the right MCA in the expected location of the one segment series 406 image 55.Measuring 6 x 4 mm. The left A1 segment is not definitively visualized.Lungs could represent the stump of an occluded A1 segment on the right.Versus less likely aneurysmal dilation given its tubular structure.Additional small focus near midline is also present unclear which vessel this is with focal dilation up to 2 mm. 2.No evidence of dissection of the cervical internal carotid arteries or vertebral arteries or any evidence of significant stenosis at the carotid bifurcations. CT Brain without intravenous contrast, 11/20: 1.Loss of the right frontal lobe barrera-white differentiation in the distribution of the right MCA suggesting acute infarct (axial series, image 40).Bilateral basal ganglia acute infarcts suggested .Hyperdense A1/A2 segment of the right LEONARDO with probable acute infarcts involving the medial bilateral frontal lobes.No evidence of acute intracranial hemorrhage. 2.Bilateral proptosis. EEG, 11/20: This is an abnormal routine EEG.The background slowing is suggestive of Treatment: TPA, CT angio head and neck, CT Head, Neurology consult Please clarify the etiology of the symptom of Altered Mental Status: [ x ] Encephalopathy due to Acute ischemic CVA [ ] Other condition (please specify) [ ] Unable to determine (Template Last Revised: March 2020) MTDD
[2022-11-21] MEDS ORDERED: ATORVASTATIN 40 MG TAB PO SCH (21:00)
--- NOTE | 2022-11-21 23:22 | P.DS ---
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 Possible right frontal lobe Patient is status post tPA was in the ER. Status post mechanical ventilator for airway protection. New onset atrial fibrillation with rapid ventricular rate Angioedema likely related to TPA Hypertension Hyperlipidemia COPD Prior history of smoking Morbid obesity BMI 42.9 Hospital course: Patient is a 72-year-old male with a past medical history of hypertension, COPD, depression and prior history of smoking was brought to the hospital by EMS due to strokelike symptoms, left facial droop and altered mental status. Recommend of family patient was in the recliner after dinner and started snoring. Patient's family went in to check. He did not respond with sternal rub and also noted to have left facial droop and protruding tongue. Was also having labored breathing and involuntary movements as well. Family noticed that he was looking towards the right. EMS was called and patient was brought to ER. Upon arrival to ER patient was unresponsive and was vomiting. He was intubated in the ER for airway protection. Patient had difficult intubation. . Patient had CT head showed nonspecific white matter changes. Likely secondary to chronic small vessel ischemic disease. CT angiogram of the head and neck showed there is a blind ending tubular structure of the right MCA in the expected location of the one segment failure is. The left ear one segment is not definitely visualized. This could represent the stump of an occluded A1 segment on the right. Worsens less likely aneurysmal dilation given the tubular structure. Additional small focus near the midline is also present unclear which vessel disease with focal dilation up to 2 mL. No evidence of dissection of the cervical internal carotid arteries and vertebral arteries are any evidence of significant stenosis at the carotid bifurcations. Chest x-ray showed cardiomegaly and mild pulmonary vascular congestion. Qualitative BNP for congestive heart failure. Patient evaluated by several consultants including pulmonary/critical care team, engineering department chair, neurologist He was treated with Cardizem drip, Keppra, IV fluids. Patient To ICU on mechanical ventilation Patient condition continued to be critical Today family Decided to Withdraw Care and Pursue with Comfort Care Measures with Neurology and Critical Care Team Are Aware. Patient Eventually at 17:00 Exam prior to expiration -GENERAL: The patient is intubated and sedated HEENT: Pupils are round and equally reacting to light. EOMI. No scleral icterus. No conjunctival pallor. Normocephalic, atraumatic. No pharyngeal erythema. No thyromegaly. CARDIOVASCULAR: S1 and S2 present. No murmurs, rubs, or gallops. PULMONARY: Chest is clear to auscultation, no wheezing , no crackles. ABDOMEN: Soft, nontender, nondistended, normoactive bowel sounds. No palpable organomegaly. MUSCULOSKELETAL: No joint swelling or deformity. EXTREMITIES: No cyanosis, clubbing, or pedal edema. -NEUROLOGICAL: Exam is limited by patient condition and intubation SKIN: No rashes. no petechiae. Time spent more than 35 minutes Patient Condition at Discharge: Serious Plan - Discharge Summary Discharge Rx Participant: No New Discharge Prescriptions: No Action RX: Zinc 50 mg PO HS RX: Simvastatin 40 mg PO HS Naproxen Sodium [Aleve] 220 mg PO Q12HR PRN PRN Reason: Pain Triamterene-Hctz 37.5-25Mg [Dyazide 37.5-25 Capsule] 1 cap PO HS Multivitamins, Thera [Multivitamin (formulary)] 1 tab PO HS Enalapril [Vasotec] 20 mg PO HS Citalopram Hydrobromide [CeleXA] 40 mg PO HS RX: atenoloL 25 mg PO HS Tamsulosin HCl [Flomax] 0.4 mg PO HS Omeprazole Magnesium [PriLOSEC OTC] 20 mg PO HS Hydrocodone/Acetaminophen [[place] 7.5-325] 1 tab PO Q6HR PRN PRN Reason: Pain Enalapril [Vasotec] 20 mg PO DAILY Tamsulosin [Flomax] 0.4 mg PO DAILY Rosuvastatin [Crestor] 10 mg PO DAILY RX: Baclofen 10 mg PO BID Aspirin [Adult Low Dose Aspirin EC] 81 mg PO HS HYDROcodone/APAP 7.5-325MG [[place] 7.5-325] 1 tab PO Q4H PRN #42 tab PRN Reason: Pain atenoloL [Tenormin] 50 mg PO DAILY Triamterene/Hydrochlorothiazid [Triamterene-Hctz 37.5-25 mg Cp] 1 cap PO DAILY Citalopram Hydrobromide [CeleXA] 40 mg PO DAILY Discharge Medication List Citalopram Hydrobromide [CeleXA] 40 mg PO HS 03/02/19 [History] Enalapril [Vasotec] 20 mg PO HS 03/02/19 [History] Multivitamins, Thera [Multivitamin (formulary)] 1 tab PO HS 03/02/19 [History] Naproxen Sodium [Aleve] 220 mg PO Q12HR PRN 03/02/19 [History] Omeprazole Magnesium [PriLOSEC OTC] 20 mg PO HS 03/02/19 [History] RX: Simvastatin 40 mg PO HS 03/02/19 [History] RX: Zinc 50 mg PO HS 03/02/19 [History] RX: atenoloL 25 mg PO HS 03/02/19 [History] Tamsulosin HCl [Flomax] 0.4 mg PO HS 03/02/19 [History] Triamterene-Hctz 37.5-25Mg [Dyazide 37.5-25 Capsule] 1 cap PO HS 03/02/19 [History] Aspirin [Adult Low Dose Aspirin EC] 81 mg PO HS 07/28/20 [History] Hydrocodone/Acetaminophen [[place] 7.5-325] 1 tab PO Q6HR PRN 07/28/20 [History] RX: Baclofen 10 mg PO BID 07/28/20 [History] HYDROcodone/APAP 7.5-325MG [[place] 7.5-325] 1 tab PO Q4H PRN #42 tab 08/03/20 [Rx] Citalopram Hydrobromide [CeleXA] 40 mg PO DAILY 11/19/22 [History] Enalapril [Vasotec] 20 mg PO DAILY 11/19/22 [History] Rosuvastatin [Crestor] 10 mg PO DAILY 11/19/22 [History] Tamsulosin [Flomax] 0.4 mg PO DAILY 11/19/22 [History] Triamterene/Hydrochlorothiazid [Triamterene-Hctz 37.5-25 mg Cp] 1 cap PO DAILY 11/19/22 [History] atenoloL [Tenormin] 50 mg PO DAILY 11/19/22 [History] Follow up Appointment(s)/Referral(s): None,Stated [Primary Care Provider] - 1-2 days Discharge Disposition: - Preliminary Cause of Preliminary Cause of : stroke
--- NOTE | 2022-11-22 10:09 | CA ---
Transthoracic Echo Report Name: Nixon Powers Age: 72 Gender: M : 1950 Exam Date: 11/20/2022 08:03 Exam Location: [facility] Ht (in): 72 Wt (lb): 350 Ordering Physician: Jovi Villar Attending/Referring Phys: Chemistry Lab Instructor Boom Hutson Procedure CPT: Indications: post CVA Cardiac Hx: Technical Quality: Technically difficult study Contrast 1: Lumason Total Dose (mL): Contrast 2: Total Dose (mL): MEASUREMENTS (Male / Female) Normal Values 2D ECHO LV Diastolic Diameter PLAX 5.6 cm 4.2 - 5.9 / 3.9 - 5.3 cm LV Systolic Diameter PLAX 4.8 cm IVS Diastolic Thickness 1.1 cm 0.6 - 1.0 / 0.6 - 0.9 cm LVPW Diastolic Thickness 1.4 cm 0.6 - 1.0 / 0.6 - 0.9 cm LV Relative Wall Thickness 0.4 RV Internal Dim ED PLAX 3.0 cm LVOT Diameter 2.2 cm Aortic Root Diameter 3.5 cm LA Systolic Diameter LX 2.4 cm 3.0 - 4.0 / 2.7 - 3.8 cm LV Diastolic Volume MOD 4C 106.3 cm??? LV Systolic Volume MOD 4C 65.7 cm??? LV Ejection Fraction MOD 4C 38.2 % LV Cardiac Index MOD 4C 1168.5 cm???/min???m??? LV Diastolic Length 4C 8.9 cm LV Systolic Length 4C 8.7 cm LA Volume 78.5 cm??? 18 - 58 / 22 - 52 cm??? LA Volume Index 26.9 cm???/m??? 16 - 28 cm???/m??? Ascending Aorta Diameter 3.1 cm DOPPLER AV Peak Velocity 104.0 cm/s AV Peak Gradient 4.3 mmHg LVOT Peak Velocity 90.4 cm/s LVOT Peak Gradient 3.3 mmHg LVOT Velocity Time Integral 18.5 cm LVOT Stroke Volume 71.6 cm??? LVOT Stroke Volume Index 26.5 ml/m??? LVOT Cardiac Index 2060.2 cm???/min???m??? AV Area Cont Eq pk 3.4 cm??? MV Peak Velocity 95.9 cm/s MV Peak Gradient 3.7 mmHg MV Mean Velocity 43.3 cm/s MV Mean Gradient 1.0 mmHg MV Velocity Time Integral 31.4 cm MR Peak Velocity 290.0 cm/s MR Peak Gradient 33.6 mmHg Mitral E Point Velocity 84.8 cm/s Mitral A Point Velocity 32.4 cm/s Mitral E to A Ratio 2.6 MV Deceleration Time 206.3 ms MV E' Velocity 7.6 cm/s Mitral E to MV E' Ratio 11.1 PV Peak Velocity 100.8 cm/s PV Peak Gradient 4.1 mmHg FINDINGS Left Ventricle LV upper limits of normal in size. Normal wall thickness. Left ventricular ejection fraction is estimated at 35-40 %. Right Ventricle Normal right ventricular size. Right Atrium Normal right atrial size. Left Atrium Normal left atrial size. Mitral Valve Structurally normal mitral valve. Mild MR. Aortic Valve Aortic valve not well visualized but appears grossly normal. No aortic valve stenosis or regurgitation. Tricuspid Valve Tricuspid valve not well visualized. Trace TR. Pulmonic Valve Pulmonic valve not well visualized. No pulmonic regurgitation. Pericardium Not well visualized. Aorta Normal size aortic root and proximal ascending aorta. CONCLUSIONS Reduced LV systolic function ejection fraction 35% Previewed by: Dr. Oswaldo Shell MD (Electronically Signed) Final Date: 22 November 2022 10:08
== END 2022-11-21 18:26 | disposition expired | DRG 61 ==
LOC: EDBD → EC 18:58 → 2SICU 21:13 → MERGE 21:13 → 2SICU 22:51
PROVIDERS: ADMIT Hospitalist; ATTEND Hospitalist
PROC: 5A1935Z Respiratory Ventilation, Less than 24 Consecutive Hours (ICD-10-PCS; principal; 2022-11-19)
PROC: 3E03317 Introduction of Other Thrombolytic into Peripheral Vein, Percutaneous Approach (ICD-10-PCS; 2022-11-19)
PROC: 0BH17EZ Insertion of Endotracheal Airway into Trachea, Via Natural or Artificial Opening (ICD-10-PCS; 2022-11-19)
PROC: 4A10X4Z Monitoring of Central Nervous Electrical Activity, External Approach (ICD-10-PCS; 2022-11-19)
DX: I63.511 Cerebral infarction due to unspecified occlusion or stenosis of right middle cerebral artery (principal); J96.01 Acute respiratory failure with hypoxia; Z68.42 Body mass index [BMI] 45.0-49.9, adult; G93.49 Other encephalopathy; Z51.5 Encounter for palliative care; Z66 Do not resuscitate; I48.91 Unspecified atrial fibrillation; T78.3XXA Angioneurotic edema, initial encounter; E78.5 Hyperlipidemia, unspecified; E66.01 Morbid (severe) obesity due to excess calories; R25.1 Tremor, unspecified; F32.A Depression, unspecified; H54.7 Unspecified visual loss; I50.9 Heart failure, unspecified; I63.81 Other cerebral infarction due to occlusion or stenosis of small artery; N40.0 Benign prostatic hyperplasia without lower urinary tract symptoms; G47.33 Obstructive sleep apnea (adult) (pediatric); R29.717 NIHSS score 17; T45.615A Adverse effect of thrombolytic drugs, initial encounter; T88.4XXA Failed or difficult intubation, initial encounter; J44.9 Chronic obstructive pulmonary disease, unspecified; X58.XXXA Exposure to other specified factors, initial encounter; R29.810 Facial weakness; Z79.82 Long term (current) use of aspirin; Z79.899 Other long term (current) drug therapy; Z82.49 Family history of ischemic heart disease and other diseases of the circulatory system
CPT/HCPCS: 31500; 36415; 36600; 37195; 70450; 70496; 70498; 71045; 80048; 80053; 80061; 80306; 82550; 82805; 83036; 84443; 84484; 85025; 85610; 85730; 87070; 87205; 93306; 94002; 94003; 94640; 95822; 96361; 96365; 96366; 96367; 96375; 99291